=== PATIENT | male | born 1990 | race Caucasian/White ===

== ENCOUNTER 2022-01-02 14:21 | Outpatient (REF) | payer OTHER, SELFPAY ==
[2022-01-02 16:51] LABS: CT PCR NOT DETECTED (Not Detect.); NG PCR NOT DETECTED (Not Detect.)
== END 2022-01-02 14:22 | disposition home or self-care (01) ==
LOC: HO.LNP 14:21
PROVIDERS: Visit Provider Internal Medicine
DX: Z11.3 Encounter for screening for infections with a predominantly sexual mode of transmission (principal)
CPT/HCPCS: 87491; 87591

== ENCOUNTER 2023-09-22 09:35 | Outpatient (AMB) | payer OTHER, SELFPAY ==
--- NOTE | 2023-09-22 09:42 | MHC.OFFWIV ---
Intake Vital Signs 09/22/23 09:47 Weight 253 lb 6 oz BP 112/72 Blood Pressure Location Rt brachial Position Sitting Pulse 82 Pulse Source Pulse Oximeter Temp 97.9 F Temp Source Temporal Artery Scan Intake Visit Reasons: EP, Work Form Intake Note: pt is here for work form to be filled out Patient Tobacco Use Status: Never used Tobacco Allergies No Known Allergies [No Known Allergies*] Allergy (Verified 09/22/23 09:43) Do you need a note to return to daycare/school/sports/work: Yes HPI HPI Comments History of Present Illness Details 32-year-old otherwise healthy male that presents for physical form. Patient is trying over state please needs a form stating he is able to run a mi half. Patient exercises regularly has no medical history no history of heart disease in the family. PFSH Social History Patient Tobacco Use Status: Never used Tobacco Review of Systems Const All systems reviewed & are unremarkable except as noted in HPI and below Denies fever(s), Denies headache(s) and Denies weakness Eyes Reports no additional complaints ENT Reports no additional complaints and Denies headache(s) Card Reports no additional complaints, Denies chest pain, Denies leg edema and Denies dyspnea Resp Denies cough and Denies dyspnea GI Denies abdominal pain, Denies nausea and Denies vomiting Denies dysuria and Denies urinary frequency Musc Reports no additional complaints Neuro Denies headache(s) and Denies weakness Psych Reports no additional complaints Endo Reports no additional complaints Physical Exam Vital Signs: Last Vital Signs Temp 97.9 F 09/22/23 09:47 Pulse 82 09/22/23 09:47 BP 112/72 09/22/23 09:47 Const General: cooperative, no acute distress and alert Orientation/consciousness: patient oriented x3 Limitations: no limitations HEENT Head: Yes normal to inspection Ears: hearing grossly normal bilaterally and external ears normal General nose exam: Normal external nose present Eyes General: appearance normal, both eyes and all related structures Neck Neck: Yes normal visual inspection Chest Chest palpation & inspection: normal inspection of the chest Resp Effort & Inspection: normal respiratory effort, able to speak in complete sentences and no audible wheezes Auscultation: clear to auscultation bilaterally Cardio Rate: regular rate Rhythm: regular rhythm GI Inspection: Yes normal to inspection Palpation (GI): Soft to palpation and nontender Skin General skin exam: no rashes or lesions noted Neuro General: patient oriented x3 Psych Appearance: grossly normal Mental Status: mental status grossly normal Speech and movement: Normal speech and movement present Affect: normal affect Attitude: cooperative Thought process: Normal thought process present Thought content: Normal thought content present Assessment & Plan Assessment & Plan (1) General medical exam: Code(s): Z00.00 - Encounter for general adult medical examination without abnormal findings Plan: VSS. Exam was unremarkable no murmurs rubs or gallops patient appears in good health and capable of participating in physical activity. Discharge instructions, follow up and treatment are discussed with patient in my usual fashion. Alternatives in treatment are also discussed. The patient will return for worsening symptoms or as needed. Advised that any labs/imaging ordered will be followed up on and contact made if further treatment needed. Counseled that patient's condition may require further evaluation and/or treatment. Symptoms of concern for worsening disorder discussed in detail in my customary manner. Patient does verbalize understanding of the plan, there are no apparent barriers to communication. The patient is given the opportunity to ask questions and have them answered to his/her satisfaction Coding Level of Care Code Est Pt Level 3 (71852) Diagnoses General medical exam Z00.00
[2023-09-22 09:47] VITALS: BP 112/72; PULSE 82; TEMP 36.6
== END 2023-09-22 10:06 | disposition home or self-care (01) ==
PROVIDERS: PCP Physician Assistant; Visit Provider Physician Assistant
DX: Z02.1 Encounter for pre-employment examination (principal)
CPT/HCPCS: 99080

== ENCOUNTER 2023-10-27 15:27 | Outpatient (AMB) | payer OTHER, SELFPAY ==
--- NOTE | 2023-10-27 15:52 | AM.OFFWIN_ITS ---
Intake Vital Signs 10/27/23 15:58 Height 6 ft Weight 118.841 kg BMI 35.5 BP 110/68 Blood Pressure Location Rt brachial Position Sitting Pulse 91 Pulse Source Pulse Oximeter Temp 99.1 F Temp Source Temporal Artery Scan Pulse Oximetry (%) 98 Oxygen Delivery Method Room Air Intake Visit Reasons: EP chest tight bodyaches headache vomiting [id number] Intake Note: pt is here today for chest tight bodyaches,headache,vomiting started last night Patient Tobacco Use Status: Never used Tobacco Allergies No Known Allergies [No Known Allergies*] Allergy (Verified 10/27/23 15:54) Do you need a note to return to daycare/school/sports/work: Yes HPI HPI Comments History of Present Illness Details 1625 32-year-old male without significant med ical history presents to the clinic for sick visit complaining of nausea, vomiting, diarrhea, fatigue, malaise, myalgias, some difficulty breathing/chest tightness when breathing, ongoing for the past 2 days. [place] He had drill we can this past weekend. Patient denies chest pain, shortness of breath, abdominal pain, fevers, chills, headache, vision changes, dizziness and weakness. No significant personal or family cardiac history Physical examination benign. Likely viral illness flu versus COVID versus RSV. Unlikely ACS, pulmonary embolism, pneumonia, acute respiratory distress, pneumothorax. No signs of acute abdomen, appendicitis, diverticulitis, pancreatitis or cholecystitis Plan at this time viral testing. Will give Zofran for nausea vomiting and an inhaler for shortness of breath. Educated patient on diagnosis and treatment plan, answered all question, patient verbalizes understanding. At this time patient will be discharged home, advised to return with new or worsening symptoms. Educated on worrisome signs and symptoms and when to return. At this time I feel comfortable discharge home. [facility] Social History Patient Tobacco Use Status: Never used Tobacco Review of Systems Const Details: Constitutional : No Weight loss, No Fever, No Chills, + Fatigue, + Malaise ENT/Mouth : No sore throat, No Rhinorrhea Eyes: No Eye Pain, No Swelling, No Redness Cardiovascular : No Chest Pain, No SOB, No Dyspnea on Exertion, No Orthopnea, No Edema, No Palpitations Respiratory : No Cough, No Sputum, No Wheezing Gastrointestinal : + Nausea, + Vomiting, + Diarrhea, No Constipation, No abdominal Pain, No Hematochezia, No Melena Genitourinary : No Dysuria, No Urinary Frequency, No Hematuria, Musculoskeletal : No joint pain, + Myalgias, No Joint Swelling Skin : No Skin Lesions, No rash Neuro : No Weakness, No Numbness, No Dizziness, No Headache Psych : No Anxiety/Panic, No Depression All other systems reviewed and are negative All systems reviewed & are unremarkable except as noted in HPI and below Physical Exam Vital Signs: Last Vital Signs Temp 99.1 F 10/27/23 15:58 Pulse 91 10/27/23 15:58 BP 110/68 10/27/23 15:58 Pulse Ox 98 10/27/23 15:58 Oxygen Delivery Method Room Air 10/27/23 15:58 BMI result Body Mass Index 35.5 vss Appearance: Alert.? Oriented X3.? No acute distress.? Head: Normocephalic, atraumatic, no step-offs or deformities Eyes: Pupils equal, round and reactive to light.? ENT: Pharynx normal.? Neck: Normal inspection.? Neck supple.? CVS: Normal heart rate and rhythm.? Pulses normal.? Respiratory: No respiratory distress.? Breath sounds normal.? Abdomen: Soft and nontender.? Skin: Skin warm and dry.? Normal skin color.? Normal skin turgor.? Extremities: No lower extremity edema.? No calf ttp. 5/5 strength to bilateral upper and lower extremities Neuro: Oriented X 3.? No motor deficit.? No sensory deficit. CN 2-12 intact Assessment & Plan Assessment & Plan (1) Viral illness: Code(s): B34.9 - Viral infection, unspecified Plan Take your medications as prescribed. If you were prescribed antibiotics today, it is important that you take your medication to their entirety, do not skip any doses, do not finish them early. Follow-up with your primary care provider this week. Return to the emergency department with new or worsening symptoms. Such as fevers, chills, chest pain, shortness of breath, nausea, vomiting, dizziness, headache, vision changes, lethargy In case of emergency call 911 Orders: Orders SARS-CoV2/FLU/RSV Today B34.9 - Viral infection, unspecified Medications: New albuterol sulfate 90 mcg/actuation 2 puffs inhalation Q6H PRN 6.7 grams 0RF shortness of breath or wheezing ondansetron 4 mg PO Q8-12H PRN 14 tabs 0RF nausea and vomiting Coding Level of Care Code Est Pt Level 3 (74064) Diagnoses Viral illness B34.9
[2023-10-27 15:58] VITALS: BP 110/68; PULSE 91; TEMP 37.3; O2SAT 98; BMI 35.5
== END 2023-10-27 16:55 | disposition home or self-care (01) ==
PROVIDERS: PCP Physician Assistant; Visit Provider Physician Assistant
DX: B34.9 Viral infection, unspecified (principal)
CPT/HCPCS: 99213

== ENCOUNTER 2023-10-27 15:30 | Outpatient (REF) | payer OTHER, SELFPAY ==
[2023-10-28 13:17] LABS: Influenza A PCR NEGATIVE (Negative); Influenza B PCR NEGATIVE (Negative); Resp Syncy Virus RNA Qual PCR NEGATIVE (Negative); SARS COV2 PCR INHOUSE NEGATIVE (Negative)
== END 2023-10-27 15:31 | disposition home or self-care (01) ==
LOC: HO.HMGCLNP 15:30
PROVIDERS: Visit Provider Physician Assistant
DX: Z11.52 Encounter for screening for COVID-19 (principal); Z20.822 Contact with and (suspected) exposure to COVID-19; B34.9 Viral infection, unspecified
CPT/HCPCS: 0241U

== ENCOUNTER 2025-02-19 11:17 | Outpatient (AMB) | payer OTHER, SELFPAY ==
--- NOTE | 2025-02-19 11:20 | MHC.PC.OV ---
Vital Signs 02/19/25 11:21 Height 6 ft Weight 266 lb 4 oz BMI 36.1 BP 120/78 Blood Pressure Location Lt brachial Position Sitting Pulse 84 Pulse Source Pulse Oximeter Temp 97.1 F Temp Source Temporal Artery Scan Pulse Oximetry (%) 97 Oxygen Delivery Method Room Air Intake Visit Reasons: [facility]03/20 & rt 03/27 Intake Note: Patient is here for a Pre-op for Cataract eye surgery scheduled with Dr. Patrick/Sam on 03/20 for the left eye & 03/27 for the right eye. 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 Accompanied by: Self / Same As Patient Allergies No Known Allergies [No Known Allergies*] Allergy (Verified 02/19/25 11:31) Medication List - Last Reconciled 02/19/25 by Marko Balbuena PA-C albuterol sulfate 90 mcg/actuation 2 puffs inhalation Q6H PRN Tobacco use date assessed: 02/19/25 Dental Screening Dental Screen Date: 02/19/25 Did you have a dental visit in the last 12 months?: Yes Did you have a dental problem in the last 6 months where you did not have access to dental care?: No Was dental information given to patient?: Patient has dentist HPI [facility]03/20 & rt 03/27 HPI Details Patient is a 34-year-old male here today for a preop visit. Patient has a past medical history of obesity and asthma. Patient is due for eye surgery at the [facility] on March 20 and March 27 for cataract removal. .. Concerns--> he does report bilateral lateral knee pain that has been having over last few months also lower back pain that has been evident over last few years. [place] does [place] and reporting lower back pain. He is interested in getting a lower back x-ray to evaluate. He also mentions he has had a few episodes of acute vertigo to which he was given meclizine for a urgent care. He is not sure there is a particular cause of the vertigo. He is open to the idea of trying Jo-Ann maneuvers for his vertigo. [facility] Social History Housing: House Patient Tobacco Use Status: Never used Tobacco e-Cigarette/Vaping Use: Never Used service: No Current occupational status: employed Cognitive needs: No Hearing needs: No Vision needs: No Questionnaire PHQ-9 Over the last 2 weeks, how often have you been bothered by any of the following problems? 1. Little interest or pleasure in doing things: not at all 2. Feeling down, depressed, or hopeless: not at all 3. Trouble falling or staying asleep, or sleeping too much: not at all 4. Feeling tired or having little energy: not at all 5. Poor appetite or overeating: not at all 6. Feeling bad about yourself - or that you are a failure or have let yourself or your family down: not at all 7. Trouble concentrating on things, such as reading the newspaper or watching television: not at all 8. Moving or speaking so slowly that other people could have noticed. Or the opposite - being so fidgety or restless that you have been moving around a lot more than usual: not at all 9. Thoughts that you would be better off or of hurting yourself in some way: not at all Total score: 0 Depression Screening Interpretation: Negative Depression Screening Done: Yes 50108 - PHQ-9 Billing: Yes Source: Developed by Drs. Brandin Snow, Claudia Quiroz, Gerardo Mcdonald and colleagues, with an educational maxime from [employer]. Thrive Questionnaire Date Thrive assessed: 02/19/25 I am a: Patient What is your living situation today?: I have a steady place to live Within the past 12 months, did the food you bought not last and you didn't have the money to get more?: Never true Within the past 12 months, did you worry whether your food would run out before you got money to buy more?: Never true Do you have trouble paying for medicines?: No Do you have trouble getting transportation to medical appointments?: No Do you have trouble paying your heating and electricity bill?: No Do you have trouble taking care of your child, family member or friend?: No Do you have trouble with day-to-day activities such as bathing, preparing meals, shopping, managing finances, etc.?: No Are you currently unemployed and looking for a job?: No Are you interested in more education?: No Please select the resources that you would like help with: None Currently or been in a relationship where the following occur: No concerns reported THRIVE Score: 0 AUDIT C Alcohol Use Questionnaire (AUDIT-C) 1. How often do you have a drink containing alcohol?: Never 3. How often do you have six or more drinks on one occasion?: Never Total Score: 0 TAWANNA-7 AMB Questionnaire TAWANNA-7 Date TAWANNA - 7 assessed: 02/19/25 Feeling nervous, anxious, or on edge: 0 = Not at all Not being able to stop or control worryin = Not at all Worrying too much about different things: 0 = Not at all Trouble relaxin = Not at all Being so restless that it is hard to sit still: 0 = Not at all Becoming easily annoyed or irritable: 0 = Not at all Feeling afraid as if something awful might happen: 0 = Not at all Total TAWANNA-7 score (0-4 normal; 5-9 mild; 10-14 moderate; 15-21 severe): 0 Source: Developed by Drs. Brandin Snow, Claudia Quiroz, Gerardo Mcdonald and colleagues, with an educational maxime from [employer]. TAWANNA-7 Assessment Billing TAWANNA-7 Assessment Tool: TAWANNA-7 Assessment 28567 Review of Systems Const Denies headache(s) Eyes Denies loss of vision ENT Denies vertigo, Denies dizziness, Denies headache(s) and Denies sore throat Card Denies chest pain, Denies leg edema and Denies lightheadedness Resp Denies cough, Denies hemoptysis and Denies wheezing GI Denies abdominal pain, Denies melena, Denies constipation, Denies diarrhea and Denies vomiting Denies dysuria, Denies urinary frequency and Denies urinary urgency Musc Denies arthralgias, Denies joint swelling, Denies numbness and Denies tingling Neuro Denies Abnormal speech present, Denies behavioral changes, Denies vertigo, Denies dizziness, Denies headache(s), Denies loss of vision, Denies memory loss, Denies numbness and Denies tingling Psych Denies anxiety, Denies behavioral changes, Denies depression, Denies memory loss and Denies panic attacks Calixto/Lymph Denies easy bleeding and Denies easy bruising Aller/Immun Denies wheezing Physical exam (Primary Care) Vital Signs: Last Vital Signs Temp 97.1 F 02/19/25 11:21 Pulse 84 02/19/25 11:21 BP 120/78 02/19/25 11:21 Pulse Ox 97 02/19/25 11:21 Oxygen Delivery Method Room Air 02/19/25 11:21 BMI result Body Mass Index 36.1 Tobacco/Smoking Status: Tobacco use Status Tobacco use date assessed 02/19/25 02/19/25 11:23 Patient Tobacco Use Status Never used Tobacco 02/19/25 11:20 e-Cigarette/Vaping Use Never Used 02/19/25 11:23 PHQ-9: PHQ-9 Score PHQ-9: Total score 0 02/19/25 11:32 Depression Screening Interpretation: Negative Thrive Assessment: Date of Thrive Assessment Date Thrive assessed 02/19/25 02/19/25 11:23 Currently or been in a relationship where the following occur: No concerns reported Const General: healthy appearing, no acute distress, alert and awake Nutritional Appearance: well nourished Orientation/consciousness: oriented to person, oriented to place and oriented to time HENMT Ears: TM's normal bilaterally General nose exam: Normal nasal mucous membranes and turbinates present Eyes Conjunctivae: conjunctivae normal Sclerae: sclerae normal Pupils: Equal, round and reactive pupils present Neck Neck: Yes no lymphadenopathy and Yes no JVD Thyroid: Thyroid normal Carotids: no bruits Resp Effort & Inspection: normal respiratory effort and not tachypneic Auscultation: no crackles, no rales, no rhonchi and no wheezes Cardio Rate: regular rate Rhythm: regular rhythm Heart sounds: no murmurs and normal S1 and S2 GI Palpation (GI): Soft to palpation, nontender, no hepatomegaly and no splenomegaly Auscultation: normal bowel sounds Skin General skin exam: no rashes or lesions noted and dry skin Neuro General: oriented to person, oriented to place and oriented to time Cranial nerves: Yes Equal, round and reactive pupils present Speech: No Abnormal speech present Gait exam (Neuro): Normal gait present Motor exam (neuro): no tremor noted Extrem Right upper extremity: full ROM Left upper extremity: full ROM Right lower extremity: full ROM; no edema Left lower extremity: full ROM; no edema Psych Mental Status: mental status grossly normal Speech and movement: Normal speech and movement present Affect: normal affect Attitude: cooperative Thought process: Normal thought process present Coding Level of Care Code Est Pt Level 4 (01315) Diagnoses Pre-op evaluation Z01.818 Screening for diabetes mellitus (DM) Z13.1 Class 2 obesity E66.812 Benign paroxysmal positional vertigo, unspecified laterality H81.10 Laterality: unspecified laterality Chronic pain of both knees M25.561; M25.562; G89.29 Chronicity: chronic Lumbar spine pain M54.50 Additional Codes TAWANNA-7 Assessment Billing - TAWANNA-7 Assessment Tool: TAWANNA-7 Assessment 25294 ([id number]) PHQ-9 - 22568 - PHQ-9 Billing: Yes ([id number]) Assessment & Plan Assessment & Plan (1) Pre-op evaluation: Code(s): Z01.818 - Encounter for other preprocedural examination Category: Medical Plan: Patient's vitals normal today. He is medically clear for needed bilateral cataract removals. (2) Screening for diabetes mellitus (DM): Code(s): Z13.1 - Encounter for screening for diabetes mellitus Category: Medical Plan: As per HPI (3) Class 2 obesity: Code(s): E66.812 - Obesity, class 2 Category: Medical Plan: Patient does understand his BMI is over 35 and will work on being more physically active and adapting to better eating habits to reduce his weight (4) BPPV (benign paroxysmal positional vertigo): Code(s): H81.10 - Benign paroxysmal vertigo, unspecified ear Category: Medical Qualifiers: Laterality: unspecified laterality Qualified Code(s): H81.10 - Benign paroxysmal vertigo, unspecified ear Plan: Patient's signs symptoms most consistent with a benign paroxysmal positional vertigo. Advised on Jo-Ann maneuvers. We did discuss the possibility of trying formal vestibular therapy for his vertigo. (5) Bilateral knee pain: Code(s): M25.561 - Pain in right knee; M25.562 - Pain in left knee Category: Medical Qualifiers: Chronicity: chronic Qualified Code(s): M25.561 - Pain in right knee; M25.562 - Pain in left knee; G89.29 - Other chronic pain Plan: Patient's knee pain most consistent with a tendinitis of the lateral aspect of both knees. He will continue doing conservative management in trying to lose weight. (6) Lumbar spine pain: Code(s): M54.50 - Low back pain, unspecified Category: Medical Plan: As per HPI patient continues to have lumbar spine. He is willing to get x-ray of the lumbar spine to evaluate. We did discuss the possibility of starting physical therapy. Orders: Orders Comprehensive [place]. Panel Fast Today Z13.1 - Encounter for screening for diabetes mellitus Complete Blood Count no Diff Today Z13.1 - Encounter for screening for diabetes mellitus XR lumbar spine 2-3V Today M54.50 - Low back pain, unspecified
[2025-02-19 11:21] VITALS: BP 120/78; PULSE 84; TEMP 36.2; O2SAT 97; BMI 36.1
--- OUTSIDE RECORDS SUMMARY | 2025-02-19 12:56 | XMS_ITS | Continuity of Care Document ---
Author Name [facility] Organization [facility] Care Team Providers Care Parcel Post Weigher Name Role Phone [facility] Unavailable Unavailable Problems Combined list of problems from Department of Defense and Veterans Affairs facilities. It does not include entries that were removed or entered in error. Problem Status Onset Date Problem Type Date of Resolution Comments Source Vision disorder Active 10/18/2024 Diagnosis 031 0C-AF-C-[facility] Vertigo Active 10/18/2024 Diagnosis 0310C-AF-C- [facility] Right shoulder pain Active 10/18/2024 Diagnosis 1764H-AZ-D-[facility] Pain of bilateral knee joints Active 10/18/2024 Diagnosis 5595O-YP-E-[facility] Medications Combined list of outpatient medications from Department of Defense and Veterans Affairs facilities.Medications provided include 1) outpatient medications from the last 15 months, and 2) patient-reported medications. Medication Details Route Status Patient Instructions Prescription Expires Prescription Number Last Dispense Date Ordering Provider Order Date Order Qty Source No Known Medications No Known Medicati ons complet ed [id number] AMDS Immunizations Combined list of available immunizations from the Department of Defense and Veterans Affairs facilities. Immunization Series Date Given Administered By Site Reaction Lot Number CVX Code Drug Account Executive Sales Representative Status Comments Source influenza, injectable, quadrivalent- pf 2021 [id number] GlaxoSmithKli ne complet ed influenza , injectabl e, quadrival ent-pf 09/06/22 Given Ambulat ory Pharmac y influenza, seasonal, injectable 2020 [id number] 141 Seqirus complet ed influenza , seasonal, injectabl e 08/11/21 Given Ambulat ory Pharmac y COVID Vaccine Moderna 2020 [id number] complet ed COVID Vaccine Moderna 04/27/21 Given Ambulat ory Pharmac y COVID Vaccine Moderna 2020 [id number] 207 complet ed COVID Vaccine Moderna 3/26/21 Given Ambulat ory Pharmac y anthrax vaccine 2019 [id number] 24 Emergent Biosolutions complet ed anthrax vaccine 11/08/20 Given Ambulat ory Pharmac y influenza, injectable, quadrivalent 2019 [id number] 158 Seqirus complet ed influenza , injectabl e, quadrival ent 09/30/20 Given Ambulat ory Pharmac y anthrax vaccine 2019 [id number] 24 Emergent Biosolutions complet ed anthrax vaccine 06/05/20 Given Ambulat ory Pharmac y typhoid Vi capsular polysaccharid e vac 2019 [id number] 101 sanofi pasteur complet ed typhoid Vi capsular polysacch aride vac 04/12/20 Given Ambulat ory Pharmac y anthrax vaccine 2019 [id number] 24 Emergent Biosolutions complet ed anthrax vaccine 04/12/20 Given Ambulat ory Pharmac y influenza, injectable, quadrivalent- pf 2018 [id number] 150 Seqirus complet ed influenza , injectabl e, quadrival ent-pf 10/28/19 Given Ambulat ory Pharmac y influenza, injectable, quadrivalent- pf 2017 [id number] Seqirus complet ed influenza , injectabl e, quadrival ent-pf 09/25/18 Given Ambulat ory Pharmac y Influenza, inj, MDCK, quadrivalent- pf 2016 [id number] 171 Seqirus complet ed Influenza , inj, MDCK, quadrival ent-pf 10/24/17 Given Ambulat ory Pharmac y influenza, seasonal, injectable-pf 2015 [id number] 140 Seqirus complet ed influenza , seasonal, injectabl e-pf 09/05/16 Given Ambulat ory Pharmac y hepatitis A-hepatitis B vaccine 2015 [id number] 104 GlaxoSmithKli ne complet ed hepatitis A-hepatit is B vaccine 12/28/15 Given Ambulat ory Pharmac y hepatitis A-hepatitis B vaccine 2015 [id number] 104 GlaxoSmithKli ne complet ed hepatitis A-hepatit is B vaccine 12/28/15 Given Ambulat ory Pharmac y influenza, seasonal, injectable-pf 2014 [id number] 140 CSL Behring complet ed influenza , seasonal, injectabl e-pf 08/25/15 Given Ambulat ory Pharmac y hepatitis A-hepatitis B vaccine 2014 [id number] 104 GlaxoSmithKli ne complet ed hepatitis A-hepatit is B vaccine 04/01/15 Given Ambulat ory Pharmac y hepatitis A-hepatitis B vaccine 2014 [id number] 104 GlaxoSmithKli ne complet ed hepatitis A-hepatit is B vaccine 04/01/15 Given Ambulat ory Pharmac y hepatitis A-hepatitis B vaccine 2014 [id number] 104 GlaxoSmithKli ne complet ed hepatitis A-hepatit is B vaccine 02/21/15 Given Ambulat ory Pharmac y tetanus, diphtheria, acellular pertu is 2014 [id number] 115 GlaxoSmithKli ne complet ed tetanus, diphtheri a, acellular pertussis 02/15/15 Given Ambulat ory Pharmac y tuberculin purified protein derivative 2014 [id number] 96 sanofi pasteur complet ed tuberculi n purified protein derivativ e 02/15/15 Given Ambulat ory Pharmac y adenovirus vaccine, live 2014 [id number] 143 Teva Pharmaceutica ls complet ed adenoviru s vaccine, live 02/15/15 Given Ambulat ory Pharmac y poliovirus vaccine, inactivated 2014 [id number] 10 sanofi pasteur complet ed polioviru s vaccine, inactivat ed 02/15/15 Given Ambulat ory Pharmac y meningococcal A,C,Y,W-135 (MCV4P) 2014 [id number] 114 sanofi pasteur complet ed meningoco ccal A,C,Y,W-1 35 (MCV4P) 02/15/15 Given Ambulat ory Pharmac y Results Combined list of recent chemistry, hematology and other laboratory results from Department of Defense and Veterans Affairs, ranging from 15 months to all on record, depending upon the facility. Order Name Results Value Reference Range Date Interpretation Specimen Comments Source Infectiou s Disease HIV-1/O/2 Non-Reac tive 1 ( 4 8:55 AM) 09/06 N Interpretiv e Data: INTERPRETAT ION: This method is a screening procedure for the detection of HIV p24 Antigen and Antibodies to HIV-1, including Group O, and/or HIV-2. NON-REACTIV E: HIV-1 antigen and HIV-1 / HIV-2 antibodies were not detected. No laboratory evidence of HIV infection. A negative test result does not exclude the possibility of exposure to or infection with HIV. HIV antibodies and/or p24 antigen may be undetectabl e in some stages of the infection and in some clinical conditions. If acute HIV infection is suspected, consider submitting another specimen to a reference laboratory for HIV-1 RNA. SCREEN REACTIVE - CONFIRMATIO N TO FOLLOW: Possible presence of HIV-1antibo dies, HIV-2 antibodies and/or HIV-1 p24 antigen. Specimen will reflex to the confirmatio n testing that fulfills the Center for Disease Control and Prevention' s HIV diagnostic algorithm. Refer to [employer] Lab Guide for additional information : https://Venda/ kj/kx5/EPIL ab/Pages/la b_guide.asp x Testing performed by [facility] [place]. 5600A-U [employer] EPILAB Miscellan eous Sendouts Repository Sample Received ( 4 8:55 AM) 09/06 N 5600A-U [employer] EPILAB Infectiou s Disease HIV-1/O/2 Non-Reac tive 2 (12/01/23 1:28 PM) 12/01 N Interpretiv e Data: INTERPRETAT ION: This method is a screening procedure for the detection of HIV p24 Antigen and Antibodies to HIV-1, including Group O, and/or HIV-2. NON-REACTIV E: HIV-1 antigen and HIV-1 / HIV-2 antibodies were not detected. No laboratory evidence of HIV infection. A negative test result does not exclude the possibility of exposure to or infection with HIV. HIV antibodies and/or p24 antigen may be undetectabl e in some stages of the infection and in some clinical conditions. If acute HIV infection is suspected, consider submitting another specimen to a reference laboratory for HIV-1 RNA. SCREEN REACTIVE - CONFIRMATIO N TO FOLLOW: Possible presence of HIV-1antibo dies, HIV-2 antibodies and/or HIV-1 p24 antigen. Specimen will reflex to the confirmatio n testing that fulfills the Center for Disease Control and Prevention' s HIV diagnostic algorithm. Refer to [facility] Lab Guide for additional information : https://Venda/ kj/kx5/EPIL ab/Pages/la b_guide.asp x Testing performed by [employer] [employer]. 5600A-U [facility] EPILAB Miscellan eous Sendouts Repository Sample Received (12/01/23 1:28 PM) 12/01 N 5600A-U [facility] EPILAB Infectiou s Disease HIV-1/O/2 Non-Reac tive 3 (06/10/23 1:22 PM) 06/10 N Interpretiv e Data: INTERPRETAT ION: This method is a screening procedure for the detection of HIV p24 Antigen and Antibodies to HIV-1, including Group O, and/or HIV-2. NON-REACTIV E: HIV-1 antigen and HIV-1 / HIV-2 antibodies were not detected. No laboratory evidence of HIV infection. A negative test result does not exclude the possibility of exposure to or infection with HIV. HIV antibodies and/or p24 antigen may be undetectabl e in some stages of the infection and in some clinical conditions. If acute HIV infection is suspected, consider submitting another specimen to a reference laboratory for HIV-1 RNA. SCREEN REACTIVE - CONFIRMATIO N TO FOLLOW: Possible presence of HIV-1antibo dies, HIV-2 antibodies and/or HIV-1 p24 antigen. Specimen will reflex to the confirmatio n testing that fulfills the Center for Disease Control and Prevention' s HIV diagnostic algorithm. Refer to [facility] Lab Guide for additional information : https://In[employer]. [facility]/ kj/kx5/EPIL ab/Pages/la b_guide.asp x Testing performed by [employer]. 5600A-U [facility] EPILAB [employer]cellan eous Sendouts Repository Sample Received (06/10/23 1:22 PM) 06/10 N 5600A-U [facility] [employer] Vital Signs Combined list of inpatient and outpatient Vital Signs from Department of Defense and Veterans Affairs, ranging from 12 months to all on record, depending upon the facility. Vital Sign Value Date Comments Source Respiratory Rate 16 br/min 10/18/2024 18:14:00 4388V-CK-A[facility] Peripheral Pulse Rate 62 bpm 10/18/2024 18:14:00 9883J-YG-H-[facility] Blood Pressure Manual Automatic 10/18/2024 18:14:00 6508J-SS-K-[facility] Mean Arterial Pressure, Calc 100 mm[Hg] 10/18/2024 18:14:00 0530N-HD-O-[facility] BP Site Left arm 10/18/2024 18:14:00 6465S-WG-R-[facility] Temperature Oral 36.0 Lilly 10/18/2024 18:14:00 1132Y-VW-F-[facility] Systolic Blood Pressure 130 mm[Hg] 10/18/20 24 18:14:00 1399O-EQ-C-[facility] Diastolic Blood Pressure 85 mm[Hg] 024 18:14:00 9758O-QZ-Q-[facility] Encounters Combined list of: 1) Encounters from Department of [facility] facilities going backup to the last 18 months, not all [place] inpatient encounters are included; 2) Encounters from the Department of [facility] facilities going backup to 280 months. Location Location Details Encounter Type Encounter Number Reason For Visit Attending Provider ADM Date DC Date Status Disposition Source [id number] AMDS Outpatient [id number] CHRISTIAN FAUSTSocrates 09/13 Discharge Disposition: Home or Self Care 8344R-4 [id number] AMDS 0310C-AF- C[facility] Care Not Rendered [id number] DEVIN CHURCHLEROY 10/05 Discharge Disposition: Home or Self Care 0310C-A F-C-[facility] 0310C-AF- C-[facility] Clinic [id number] Dizzine ss and giddine ss,Pain in right shoulde r,Pain in unspeci fied knee,Un specifi ed visual disturb ance DEVIN ROMELIA 10/18 Discharge Disposition: Home or Self Care 0310C-A F-C-[facility] Procedures Combined list of: 1) Procedures from Department of Veterans Affairs facilities going back up to thelast 18 months, not all [place] non-surgical procedures are included; 2) All procedures from the Department of Defense facilities. Procedure Procedure Type Code Date Perfomer Comments Sourc e No data available for this section Ambulatory P harmacy Social History Combined list of available smoking, tobacco, and other social history from Department of Defense and Veterans Affairs facilities. Social History Type Response Date Comment Rosie auguste Sex Representation Male (finding) 12/03/2022 Un known Organization Tobacco Cigarette use: Never-cigarette user. Other Tobacco use: Never-other tobacco user (not cigarettes). Ambulatory Pharmacy Sexual Orientation Ambula tory Pharmacy Gender identity Ambulator y Pharmacy Assessment and Plan Combined list of future care activities from Department of Defense and Veterans Affairs facilities (e.g., assessment and plan notes, appointments, orders, and referrals). Additional future care activities may be listed in the Plan of Care section. Result Assessment and Plan Date Source Assessment and Plan Extracted from:Title : Office Clinic Note - Vertigo, R Shoulder, B/L Knee Author: DEVIN BURGESS MD Date: 10/18/24 1.?Vertigo ?Patient with a history of vertigo episodically now x2 episodes lasting about 1-2 weeks per episode with reproducible symptoms during Frandy-Hallpike maneuver in clinic. Patient otherwise asympomatic at?this time. Jo-Ann maneuver not performed due to absence of symptoms at this time. DDx?also includes vestibular neuritis, labyrinthitis. No coexisting hearing changes or problems. No other neurologic signs or symptoms.? - Discussed repositioning maneuver which patient will review and perform if episode returns - Return precautions discussed? - Repeat meclizine if helpful and if repeats? 2.?Vision disorder Patient instructed by optometry that he has symptoms of early cataracts and was recomended?opthalmology. Not fully discussed today.? - Referral optho places? - Follow-up based on their recommendations? Ordered: Referral Request 2.0 - DoD ? 3.?Right shoulder pain ?Patient is a?33 Years?year old?Male?with a history and exam as documented suggestive of?supraspinatus injury?likely 2/2 to chronic degenerative changes associated with lifestyle (i.e. baseball, lifting weights). ? ? Plan: ? - Relative rest, ice, heat, activity modification ? - Home exercise program discussed ? ? Meds: ? - NSAIDs and Acetaminophen as needed and as ordered ? ? Imaging: ? -Radiographs:?Not indicated ? ? Referrals: ? -Physical Therapy:?ordered at this time ? ? Follow: up:?in 4-6 weeks if symptoms not improving with current plan ? Ordered: Referral Request 2.0 - DoD ? 4.?Pain of bilateral knee joints ?Patient is a?33 Years?year old?Male?with a history and exam as documented suggestive of?patellofemoral pain?syndrome . No antecedent?falls nor trauma.? ? Plan: ? - Relative rest, ice, heat, activity modification ? - Home exercise program discussed ? -?[employer] discussed and included in after visit summary ? -?Injections - not indicated ? ? Meds: ? - NSAIDs and Acetaminophen as needed and as ordered ? ? Imaging: ? -Radiographs:?Not indicated ? ? Referrals: ? -Physical Therapy:?ordered at this time ? Ordered: Referral Request 2.0 - DoD ? ? Readiness - No profiles/No DR/ No MR/ no FR ? Clinic return and ER precautions provided ? All questions answered/pt acknowledges understanding ? ? Please note that this document was dictated using cit[employer]udd[employer] Speak and I apologize for any assistant corporation counsel errors I have missed and therefore should be taken within appropriate clinical context. ? ? Patient seen and examined on day of encounter with all studies (including labs and radiology) reviewed as above. ? ? Note to patient reading this note: the Century Cares Act makes medical notes available to patient's in the interest of transparency.? Be advised this is a medical document.? It is intended primarily as xnuv-uc-wuos communication.? It is written in medical imaging which may contain abbreviations or verbiage that are unfamiliar.? It may appear as blunter or direct. This is because medical documents are intended to carry relevant information, facts is evident, and the clinical opinion of the physician only has formulated at the time of writing.? ? ? I spent 60 minutes?in direct patient care of this patient, in addition to time spent in chart review and documentation.? ? Devin Burgess Jr., MD [facility], , [facility] Family?Medicine Physician? [employer] [address], [place] [address] ? Extracted from:Title: PDMHA Author: ALFONSOKT Date: 09/07/24 POST-DEPLOYMENT MENTAL HEALTH ASSESSMENT Date: Last Name: AASHISH First Name: MIYA Peterson ID Number: [id number] Date of : Sex: Male Service Branch: [employer] Component: Reserves Pay Grade: E6 Date departed theater: Country: [place] Summary of provider's identified concerns needing referral: Recommended referal(s): Referral Time Comments: SECTION II. MENTAL HEALTH ASSESSMENT (MHA) PROVIDER INFORMATION 1. Last Name: CONCHA 2. First Name: CHRISTIAN 3. Middle Name: 4. Service Branch: [employer] 5. 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 EMAIL: [email or web address] 8. Facility: [address] [facility] 9. Unit: [address] [facility] 10. Address: [address] [place] [address] 11. State: [facility]. Zip Code: [address] 13. Phone: [phone] Date: 1. Deployer marked that they did not have a concern or a difficulty with a major life stressor. 2. Address concerns identified on deployer questions 2 and 3. History of mental health care: N/A Deployer's response: Provider's comments: Medications: N/A Deployer's response: Provider's comments: 3. Deployer's AUDIT-C screening score was 3. (nothing required) 4. Deployer did not luis yes on three or more of questions 5a through 5e. 5. Deployer did not luis More than half the days or nearly every day on question 6a or 6b. 6.a. Deployer has not wished they were or wished they could go to sleep and not wake up. 6.b. Deployer has not actually had thoughts of killing themself. 6.f.1. Deployer has not ever done anything, started to do anything, or prepared to do anything to end their life. 6.g. Further risk assessment: no concerns 6.h. Deployer does not pose a current risk for harm to self. 7. Deployer states that they have not had thoughts or concerns over the past month that they might hurt or lose control with someone. 13. Supplemental services recommended/information provided: No Supplemental Services Required 1. a. [ None ] Over the PAST MONTH, which major life stressors, if any, have you experienced that are a cause of significant concern or make it difficult for you to do your work, take care of things at home, or get along with other people? 2. [ No ] In the PAST YEAR did you receive care for any mental health condition or concern such as, but not limited to post traumatic stress disorder (PTSD), depression, anxiety disorder, alcohol abuse or substance abuse? 3. [ None ] What prescription or over-the counter medications (including herbals/supplements) for sleep, pain, combat stress, or a mental health problem are you CURRENTLY taking? 4. a. [ 2-4 times a month ] How often do you have a drink containing alcohol? 4. b. [ 1 or 2 ] How many drinks containing alcohol do you have on a typical day when you are drinking? 4. c. [ Less than monthly ] How often do you have six or more drinks on one occasion? 5. Have you ever had any experience that was so frightening, horrible, or upsetting that in the PAST MONTH, you: 5. a. [ No ] Have had nightmares about it or thought about it when you did not want to? 5. b. [ No ] Tried hard not to think about it or went out of your way to avoid situations that remind you of it? 5. c. [ No ] Were constantly on guard, watchful or easily startled? 5. d. [ No ] Milton numb or detached from others, activities, or your surroundings? 5. e. [ No ] [place] guilt or unable to stop blaming yourself or others for the event(s) or any problems the event(s) may have caused? 6. Over the LAST 2 WEEKS, how often have you been bothered by the following problems? 6. a. [ Not at all ] Little interest or pleasure in doing things 6. b. [ Not at all ] Feeling down, depressed, or hopeless 7. [ No ] Would you like to schedule an appointment with a health care provider to discuss any health concern(s)? 8. [ No ] Are you interested in receiving information or assistance for a stress, emotional or alcohol concern? 9. [ No ] Are you interested in receiving assistance for a family or relationship concern? 10. [ No ] Would you like to schedule a visit with a spool carrier or a community support counselor? Extracted from:Title: [facility] 2023 Author: KT HAMILTON Date: 09/06/24 ANNUAL PERIODIC HEALTH ASSESSMENT I. COOK HELPER FRUIT INFORMATION AND DEMOGRAPHICS (SMI) 1. Last Name: AASHISH 2. First Name: MIYA 3. Middle Name: ELAINA 4. Assessment Date: 5. : 6. Age: 33 7. Sex: M 8. DoD ID Number: [id number] 9. Service Branch: [employer] 10. 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 Unit Name: [address] 14. Duty Station/Location: [place] 15. UIC: [id number] 16. Is this your first Periodic Health Assessment (PHA)?: N 17. Are you enrolled in a secure messaging system with your health care provider?: 18. Current contact information: Preferred Method: Day Time Phone DSN: Day Time Phone: [phone] Night Time Phone: [phone] Email 1: [email or web address] Email 2: Address: [address] [place] [address] City: [place] State: [place] Zip Code: [address] 19. Point of contact who can always reach you: Name: Kierra Beatty Phone 1: [phone] Phone 2: EMAIL: [email or web address] Address: [address] [place] [address] City: [place] State: [place] Zip Code: [address] II. DEPLOYMENT INFORMATION (DEP) 1. [ 1 ] Total number of deployments in the PAST 5 YEARS 2. [ [place] ] Primary country of last deployment 3. [ ] Date departed theater 4. [ N ] Are you going to deploy within the NEXT 120 DAYS? III. 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 [ No ] Does your specialty require an operational duty physical exam? 4. [ No ] Are you currently enrolled in a medical surveillance/occupational health program?: No IV. MEDICAL CONDITIONS (MIKE): 1. Since your last PHA, have you experienced any of the following health conditions, and if so, what is your status? [ ] Conditions with no medical care [ Periods of dizziness, fainting, or loss of consciousness ] Conditions with medical care, but no longer under treatment [ ] Conditions with medical care, and NOW under treatment 2. Since your last PHA, have you experienced any of the following health conditions, and if so, what is your status? [ ] Conditions with no medical care [ Recurring muscle, joint, or low back pain ] Conditions with medical care, but no longer under treatment [ ] Conditions with medical care, and NOW under treatment 3. For any condition marked YES in question 1 or 2, are you currently on any profile or limited duty for that condition? [ ] Conditions 4. [ Not Sure ] Have you been based or stationed at a location where an open burn pit was used? 5. [ Not Sure ] Have you been exposed to toxic airborne chemicals or other airborne contaminants? 6. [ No ] Are you enrolled in the Airborne Hazards and Open Burn Pit Registry? 7. [ Yes ] Federal law requires eligible members to enroll in the Airborne Hazards and Open Burn Pit Registry or opt-out. If eligble, choose one: 8. Have you had any surgery since your last PHA?: No 10.a. [ No ] Since your last PHA, has a health care provider recommended surgery(s) that you have not had? 11.a. [ No ] Do you currently require hearing aids, special medical supplies, CPAP, adaptive equipment, assistive technology devices, and/or other special accommodations? 12.a. [ No ] Do you have a waiver or profile for any part of your Service's physical fitness test? 13.a. [ No ] Do you have any problems wearing a gas mask, ballistic helmet, body armor, and/or chemical/biological protective garments? 14.a. [ No ] Have you ever been told by a health care provider that you SHOULD NOT receive an immunization for medical reasons? 15.a. [ No ] Do you have a permanent profile or an Assignment Limitation Code C? 16.a. [ No ] Are you on a temporary profile or limited duty? 17. [ 0 ] During the PAST 2 years, how many times have you been placed on a temporary profile or on limited duty? V. INDIVIDUAL MEDICAL READINESS (IMR) 1. [ No ] Do you have any allergies? 3. [ Not required ] Do you have red medical warning dog tags? 4. [ Yes ] Do you wear corrective lenses? 5. [ 1 ] How many pairs of glasses do you have? 6. [ Yes ] Do you have gas mask inserts? . BEHAVIORAL HEALTH (MHA) 1. a. [ None ] Over the PAST MONTH, what major life stressors have you experienced that are a cause of significant concern or make it difficult for you to do your work, take care of things at home, or get along with other people (for example, serious conflicts with others, relationship problems, or a legal, disciplinary or financial problem)? 2. a. [ No ] In the PAST YEAR did you receive care for any mental health condition or concern such as, but not limited to post traumatic stress disorder (PTSD), depression, anxiety disorder, alcohol abuse or substance abuse? 3. [ None ] What prescription or over-the counter medications (including herbals/supplements) for sleep, pain, combat stress, or a mental health problem are you CURRENTLY taking? 4. a. [ Yes ] In the past 12 months, have you gambled? 4. b. [ No ] During the past 12 months, have you become restless, irritable, or anxious when trying to stop/cut down on gambling? 4. c. [ No ] During the past 12 months, have you tried to keep your family or friends from knowing how much you gambled? 4. d. [ No ] During the past 12 months, did you have such financial trouble as a result of your gambling that you had to get help with living expenses from family, friends, or welfare? 5. a. [ 2-4 times a month ] How often do you have a drink containing alcohol? 5. b. [ 1 or 2 ] How many drinks containing alcohol do you have on a typical day when you are drinking? 5. c. [ Less than monthly ] How often do you have six or more drinks on one occasion? 6. Have you ever had any experience that was so frightening, horrible, or upsetting that in the PAST MONTH, you: 6. a. [ No ] Have had nightmares about it or thought about it when you did not want to? 6. b. [ No ] Tried hard not to think about it or went out of your way to avoid situations that remind you of it? 6. c. [ No ] Were constantly on guard, watchful or easily startled? 6. d. [ No ] Milton numb or detached from others, activities, or your surroundings? 6. e. [ Not answered ] Milton guilt or unable to stop blaming yourself or others for the event(s) or any problems the event(s) may have caused? 7. Over the LAST 2 WEEKS, how often have you been bothered by the following problems? 7. a. [ Not at all ] Little interest or pleasure in doing things 7. b. [ Not at all ] Feeling down, depressed, or hopeless 8. [ Yes ] Would you like to schedule an appointment with a health care provider to discuss any health concern(s)? 9. [ No ] Are you interested in receiving information or assistance for a stress, emotional or alcohol concern? 10. [ No ] Are you interested in receiving assistance for a family or relationship concern? 11. [ No ] Would you like to schedule a visit with a spool carrier, mental health care provider, or a community support counselor? VII. FAMILY HISTORY AND LIFESTYLE (LIF) 1. [ Good ] Overall, how would you rate your health during the PAST MONTH? 2. [ None/Don't Know ] Member indicates that family members have the following problems 6. [ Yes ] I participate in moderate intensity physical activites at least 2.5 hours, or a combination of moderate and vigorous aerobic activites, for at least 75 minutes per week. 7. In a typical week, I do physical activities specifically designed to STRENGTHEN my muscles: [ 4 ] Day(s) per week 8. [ None ] What prescriptions or [id number]-boipgve medications are you CURRENTLY taking for health problems on a ROUTINE BASIS? 9. Which of the following products have you taken since your last PHA: Protein Supplements/Creatine: Every other day Performance Enhancers/Pre-Workout Products: Every other day Herbal or Botanical Supplements in pills, gels, and/or tablet form: Every other day Multi-Vitamins: Every other day Nelson-3 Supplements: Once a day 11. Think about the PAST 30 DAYS. How often did you eat/drink the following foods/beverages? [ 1 serving per day ] Fruits [ 1 serving per day ] Vegetables [ 1 serving per day ] Starchy Vegetables [ 1 serving per day ] Whole Grains [ 1 serving per day ] Dairy and Calcium Containing Foods [ Rarely or Never ] Fish [ 1 serving per day ] Lean Protein [ 1 or 2 servings per week ] Sugar-Sweetened Beverages 12. [ Don't Know ] Have you had a cholesterol check by a health animal care taker within the PAST 5 YEARS? 13.a. In the PAST 30 DAYS, which of the following products have you used on at least one day? None 15. Which of the following best describes your past tobacco use? I used tobacco in the past, but quit in 2023 16. [ No ] Are you regularly exposed to secondhand smoke? 17. [ 7 to 9 hours ] During the LAST 2 WEEKS, how many hours of sleep did you get on most days? 18. [ No ] During the LAST 2 WEEKS, have you felt impaired or unable to adequately perform due to sleepiness or poor quality sleep? 19. [ No ] Have you had any unexplained weight loss or gain since your last PHA? 20. Member is not at risk for sexually transmitted infections. 22. Since your last PHA, what, if anything, have you and your partner used to keep from getting ? [ My partner(s) or I intend to get in the next year. ] I am not actively taking steps to prevent as 23. [ No ] In the last year, have you or your partner had a scare, where you were not trying to get but were worried enough to use a home test? IX. RESERVE COMPONENT (RES) 1. [ Yes ] Do you have an injury, illness, Or disease which was incurred or aggravated while in a duty status since your last PHA? 2. [ No ] Have you completed or are you pending a Line of Duty for that injury, illness, or disease? 3. What is your injury, illness, or disease? When did it occur? back / knee issues: 4. [ Yes - ] Are you currently coverered under a health insurance policy? 5.a. [No, I have never applied for Worker's Compensation ] Do you have any current physical or mental health limitations related to a Worker's Compensation claim? 6. [ No ] Have you applied for or have you received a VA disability rating? X. OTHER MEDICAL (OTH) 1. [ 1 ] Rate the amount of pain you have had, on average, over the PAST 24 HOURS 2. [ No ] Are you receiving treatment for pain? 3. [ No ] Since your last PHA, have you received care or treatment for any medical and/or mental health condition(s) from a civilian or non- facility? 5. Member acknowledged responsibility for reporting health issues. 7. [ Yes ] Woud you like to schedule an appointment with a health care provider to discuss any health concerns? XI. SEPARATION AND LONG TERM 1. [ No ] Are you planning to separate or retire within the next year from Active Duty or [place] Duty (activated for greater than 30 continuous days) OR do you intend to file a claim for disability compensation with the Veterans Benefits Administration? PART B. RECORD REVIEW AND RECOMMENDATIONS I. RECORD REVIEWER INFORMATION 1. Last Name: MAHSA 2. First Name: DEVIN 3. Middle Name: 4. Service Branch: [employer] 5. 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 EMAIL: [email or web address] 8. Facility: [facility] 9. Unit: [facility] 10. Address: [address] [place] [address] 11. State: [facility]. Zip Code: [address] 13. Phone: [phone] 14. Date Record Review: II. MEDICAL SCREENING 1. [ ] Date of administrative appeals tribunal member's most recent PHA 2. [ 6 feet 0 inches Date: ] administrative appeals tribunal member's most recently documented height 3. [ 250 pounds Date: ] administrative appeals tribunal member's most recently documented weight 4. [ 122/78 Date: ] administrative appeals tribunal member's most recently documented blood pressure reading 5. [ No ] Does the administrative appeals tribunal member have a history of abnormal blood pressure since their last PHA? 6. [ Yes ] Does the administrative appeals tribunal member have a laboratory test of sickle cell trait documented in their permanent medical record? 7. [ No Cholesterol Test Documented ] What is the date of the administrative appeals tribunal member's most recently documented cholesterol test? 9. [ No Active Medications Documented ] List of administrative appeals tribunal member's active medications listed in their permanent medical record 10. [ No ] Is there a discrepancy between the active medication record review and the administrative appeals tribunal member's self-reported list of medications? 11. [ No Outside Care Documented ] List documented significant care the administrative appeals tribunal member has received since their last PHA from a provider OUTSIDE the Health System 12. [ No ] Is there a discrepancy between the administrative appeals tribunal member's list of OUTSIDE care (from OT5), and the OUTSIDE care found in the record? 13. [ [id number] LBP [id number] LBP chronic [id number] dizziness/shaving wavier ] List documented significant care the administrative appeals tribunal member has received since their last PHA from a provider INSIDE the Health System 15. [ Not Answered ] Confirm that vaccine exemptions are listed in the medical record for each vaccine listed IV. FAMILY HISTORY AND LIFESTYLE 1. [ Yes ] Does the [id number] reflect the administrative appeals tribunal member's reported family history? . DEPLOYMENT-RELATED HEALTH ASSESSMENTS 1. [ No ] Based on your check of records, does the administrative appeals tribunal member have any due or overdue deployment health assessments which need to be completed with this PHA? VII. INDIVIDUAL MEDICAL READINESS 1. [ No ] Does the administrative appeals tribunal member have an Assignment Limitation Code C? 3. [ Classification: 2 ] Most recently documented dental exam 4. [ No: Influenza, [place] ] Is the administrative appeals tribunal member current on all required immunizations in the immunization tracking system? 5. [ Yes ] Is the administrative appeals tribunal member current with Service-specific requirements for glasses and gas mask inserts? 6. Does the administrative appeals tribunal member have the following laboratory tests documented in their permanent medical record? [ Yes ] HIV test within the PAST 24 months [ Yes ] G6PD results on file [ Yes ] Blood type and Rh on file [ Yes ] DNA test on file IX. ADDITIONAL RECORD REVIEWER COMMENTS 1. This record review indicates the potential need for provider notification or referral: Provider Notified 2. Additional comments about this record review that need to be forwarded to the Health Secure Software Assessor completing PART C: see [facility] Date Record Review Completed: PART C. HEALTH CARE PROVIDER I. MENTAL HEALTH ASSESSMENT (MHA) PROVIDER INFORMATION 1. Last Name: CONCHA 2. First Name: CHRISTIAN 3. Middle Name: 4. Service Branch: [employer] 5. 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 EMAIL: [email or web address] 8. Facility: [address] [place], [place] [address] 9. Unit: [address] [place], [place] [address] 10. Address: [address] [place] [address] 11. State: [place] 12. Zip Code: [address] 13. Phone: [phone] 14. Date HCP Review initiated: 1. Member marked that they did not have a concern or a difficulty with a major life stressor. 2. Address concerns identified on member questions 2 and 3. History of mental health care: N/A Member's response: Provider's comments: Medications: N/A Member's response: Provider's comments: 3. Member's AUDIT-C screening score was 3. (nothing required) 4. Member did not luis yes on two or more of questions 6a through 6e. 5. Member did not luis More than half the days or nearly every day on question 7a or 7b. 6. Suicide risk evaluation. 6. a. Ask: Over the past month, have you wished you were or wished you could go to sleep and not wake up?: No 6. b. Ask: Have you actually had any thoughts of killing yourself?: No 6. f. 1. Ask: In you lifetime, have you done anything, started to do anything, or prepared to do anything to end your life?: No 6. g. Further risk assessment comments: no concerns 7. Member states that they have not had thoughts or concerns over the past month that they might hurt or lose control with someone. 9. Summary of Provider's identified concerns needing referrals: None 11. Comments: no concerns 12. Address requests as reported on administrative appeals tribunal member questions 7 through 10 (in Cafe Lead Section . Behavioral Health): Request medical appointment: PCP follow up knee/back 13. Supplemental services recommended/information provided: No supplemental services required Date MHA Certified: III. PERIODIC HEALTH ASSESSMENT (PHA) PROVIDER INFORMATION 1. Last Name: CONCHA 2. First Name: CHRISTIAN 3. Middle Name: 4. Service Branch: [facility] 5. 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 EMAIL: [email or web address] 8. Facility: [address] [place], [place] [address] 9. Unit: [address] [place], [place] [address] 10. Address: [address] [place] [address] 11. State: [place] 12. Zip Code: [address] 13. Phone: [phone] 14. Date HCP Review initiated: IV. PERIODIC HEALTH ASSESSMENT PROVIDER RECOMMENDATIONS and REFERRALS 1. Provider concerns with this assessment: No issues or concerns identified V. SUMMARY AND COMMENTS 1. Additional information summarizing findings during the administrative appeals tribunal member assessment: 2. Provider Comments: . INDIVIDUAL MEDICAL READINESS DISPOSITION DETERMINATION MIKE: Ready DEN: Ready IMM: Ready LAB: Ready ME: Ready IMR Status: Fully Medically Ready VII. SERVICE MEDICAL DEPLOYABILITY EVALUATION INDICATED Based on your review of all documentation, is the administrative appeals tribunal member medically deployable without limitations? Reference Kacie 6490.07 Yes (administrative appeals tribunal member DOES NOT currently have a medical condition that limits deployability) Date PHA Completed: END OF [id number] REPORT -- Extracted from:Title: DHA2 Author: DEVIN BRAGG Date: 08/15/24 POST DEPLOYMENT HEALTH ASSESSMENT (PDHA) - [id number] OCT 2023 Last Name: AASHISH First Name: MIYA PETERSONID: [id number] Date of : Sex: Male Service Branch: [employer] Component: [employer] Pay Grade: E6 Date arrived theater: Date departing theater: Summary of provider's identified concerns needing referral: None identified Provider Comments: no further comments. Provider's Name: Capt Shabbir Mcginnis Date: 1. Address concerns identified on deployer questions 1 and 2. Self health rating: N/A Deployer's response: N/A Provider's comments: Change in health post-deployment: N/A Deployer's response: N/A Provider's comments: no acute changes 2. Address wounds, injuries, assaults, etc., occurring during deployment as reported on deployer question 4. Deployer did not indicate concern. 3. Deployment experiences as reported in deployer question 5. Consider in overall assessment; as follow-up questions as indicated. Danger of being killed: N/A Provider's comments: Encountered bodies or saw people killed or wounded: N/A Provider's comments: In direct combat and discharged weapon: N/A Provider's comments: 4. Address concerns identified on deployer questions 6 through 9. Health care visits during deployment: N/A Deployer's response: N/A Provider's comments: Care for combat stress/mental health: N/A Deployer's response: N/A Provider's comments: Hospitalized since return: N/A Deployer's response: N/A Provider's comments: Physical limitations/problems: Deployer indicated concern or yes Deployer's response: Provider's comments: he reports bilateral shoulder, knees and lower back pain. 5. a. Deployer had an injury based on responses to question 10.a. b. Deployer did NOT have a possible concussion based on responses to questions 10.a. through 10.c. 6. Post-deployment general symptoms/health concerns. List of symptoms reported as Bothered a Lot on Deployer Questions 11a. through 11ee.: None List of symptoms reported as Bothered a Little on Deployer Questions 11a. through 11ee.: Back pain, Pain in the arms, legs, or joints (knees, hips, etc.), Dizziness, Feeling tired or having low energy, Balance problems Physical symptom (PHQ-15) severity score for Deployer Questions 11a. through 11o.: Minimal a. Deployer does not have evidence of high generalized post-deployment physical symptoms. 7. Deployer marked that they did not have a concern or a difficulty with a major life stressor. 8. Address concerns as described on deployer questions 13 and 14. History of mental health care: N/A Deployer's response: Provider's comments: none Medications: N/A Deployer's response: Provider's comments: none 9. Deployer's AUDIT-C screening score was 2. (nothing required) 10. Deployer did not luis yes on two or more of questions 16a through 16e. 11. Deployer did not luis More than half the days or nearly every day on question 17a or 17b. 12. Deployer did not indicate a worry or concern about a possible environmental/work exposure. 13. Deployer marked NO to the question about possible exposure to depleted uranium. 14. Deployment location did not require malaria prophylaxis. 15. Deployer indicated they were NOT bitten or scratched during this deployment. 16.a. Deployer has not wished they were or wished they could go to sleep and not wake up. 16.b. Deployer has not actually had thoughts of killing themself. 16.f.1. Deployer has not ever done anything, started to do anything, or prepared to do anything to end their life. 16.g. Further risk assessment: 16.h. Deployer does not pose a current risk for harm to self. 17. Deployer states that they have not had thoughts or concerns over the past month that they might hurt or lose control with someone. 23. Supplemental services recommended/information provided: No Supplemental Services Required 1. Good : Overall how would you rate your health during the PAST MONTH? 2. Somewhat better now than before I deployed : Compared to before this deployment, how would you rate your health in general now? 3. Not at all : How often did you smoke tobacco (For example cigarettes, cigars, pipe, Or hookah) during your deployment? 4. No : Were you wounded, injured, assaulted or otherwise hurt during your deployment? 5. During your deployment: 5.a. No : Did you ever feel like you were in great danger of being killed? 5.b. No : Did you encounter bodies or see people killed or wounded during this deployment? 5.c. No : Did you engage in direct combat where you discharged a weapon? 6. 2-3 visits : How many times during your deployment did you visit a health care provider for a medical or dental health problem/concern? 7. No : During this deployment did you receive care for combat stress or a mental health problem/concern? 8. No : During this deployment did you have to spend one or more nights in a hosptial as as patient? 9. Somewhat difficult : During the PAST MONTH, how difficult have physical health problems (illness or injury) made it for you to do your work or other regular daily activities? 10.a. During this deployment, did any of the following events happen to you? (Luis all that apply) No : (1) Blast or explosion (e.g. IED, RPG, EFP, land mine, grenade, etc.)? No : (2) Vehicular accident/crash (any vehicle including aircraft)? (3) Fragment wound or bullet wound? No : a. Head or neck? No : b. Rest of body? Yes : (4) Other injury (e.g., sports injury, accidental fall, etc.)? I have on and off lower back issues. Had a bad flare up during basketball. : If yes to any of the above, please explain 10.b. As a result of any of the events in 10.a., did you receive a jolt or blow to your head that IMMEDIATELY resulted in: No : (1) Losing consciousness? (knocked out) No : (2) Losing memory of events before or after the injury? No : (3) Seeing stars, becoming disoriented, functioning differently, or nearly blacking out? 10.c. 0 : How many total times during this deployment did you receive a blow or jolt to your head? 11. During the PAST MONTH, how much have you been bothered by any of the following problems? (See health care provider item #6 above) 12.a. None : Over the PAST MONTH, what major life stressors, if any, have you experienced that are a cause of significant concern or make it difficult for you to do your work, take care of things at home, or get along with other people? 13. No : In the PAST YEAR, did you receive care for any mental health condition or concern such as, but not limited to post traumatic stress disorder (PTSD), depression, anxiety disorder, alcohol abuse or substance abuse? 14. None : What prescription or over-the counter medications (including herbals/supplements) for sleep, pain, combat stress, or a mental health problem are you CURRENTLY taking? 15.a. Monthly : How often do you have a drink containing alcohol? 15.b. 1 or 2 : How many drinks containing alcohol do you have on a typical day when you are drinking? 15.c. Less than monthly : How often do you have six or more drinks on one occasion? 16. Have you ever had any experience that was so frightening, horrible, or upsetting that in the PAST MONTH, you: 16.a. No : Have had nightmares about it or thought about it when you did not want to? 16.b. No : Tried hard not to think about it or went out of your way to avoid situations that remind you of it? 16.c. No : Were constantly on guard, watchful or easily startled? 16.d. No : Milton numb or detached from others, activities, or your surroundings 16.e. No : [place] guilt or unable to stop blaming yourself or others for the event(s) or any problems the event(s) may have caused? 17. Over the LAST 2 WEEKS, how often have you been bothered by the following problems? 17.a. Not at all : Little interest or pleasure in doing things 17.b. Not at all : Feeling down, depressed, or hopeless 18. No : Are you worried about your health because you believe you were exposed to something in the environment while deployed? 19.a. Not Sure : During this deployment were you based or stationed at a location where an open burn pit was used? 19.b. Not Sure : During this deployment were you exposed to toxic airborne chemicals or other air-borne contaminants? 19.c. No : For Service members, are you enrolled in the Airborne Hazards and Open Burn Pit Registry? 19.d. Wish to Enroll : For Service members, federal law requires eligible members to enroll in the Airborne Hazards and Open Burn Pit Registry or opt-out. If eligible, choose one: 20. No : Do you think you were exposed to any chemical, biological, or radiological warfare agents during this deployment? 21. No : Were you in a vehicle hit by a depleted uranium (DU) round; inside a destroyed vehicle that contained DU; or closely inspect such a vehicle? 22. No : Were you told to take medicines to prevent malaria? 23. No : Were you bitten or scratched by an animal during your deployment? 24. Yes : Would you like to schedule an appointment with a health care provider to discuss any health concern(s)? 25. No : Are you interested in receiving information or assistance for a stress, emotional or alcohol concern? 26. No : Are you interested in receiving assistance for a family or relationship concern? 27. No : Would you like to schedule a visit with a spool carrier, mental health care provider, or a community support counselor? Extracted from:Title: DHA1 Author: GABRIELLE MADERA Date: 12/01/23 PRE-DEPLOYMENT HEALTH ASSESSMENT ([id number] AUG 2015) Last Name: AASHISH First Name: MIYA Social Security Number: [id number] Date of : Sex: Male Service Branch: [employer] Component: [employer] Pay Grade: E6 Estimated date of upcoming deployment: Country: [place] Number of previous deployments: 1 Medical assessment/disposition: Deployable Medical assessment/disposition comments: Summary of provider's identified concerns needing referral: None identified Provider's Name: GONZALO GIGI Date: 1. Address concerns identified on deployer questions 1 through 8. Self health rating: N/A Deployer's response: N/A Provider's comments: MEB or PEB: Deployer's response: N/A Provider's comments: Medical, dental or mental health concern: N/A Deployer's response: N/A Provider's comments: Head Injury: N/A Deployer's response: N/A Provider's comments: Medications: N/A Deployer's response: N/A Provider's comments: History of mental health care: N/A Deployer's response: N/A Provider's comments: 2. Member marked that they were not bothered by noises in head or ears or trouble hearing. 3. Deployer's AUDIT-C screening score was 5. Number of drinks per week: 2 Maximum number of drinks per occasion: 2 Referral is not indicated because there is no significant impairment. 4. Deployer did not luis yes on two or more of questions 11a through 11d. 5. Deployer did not luis More than half the days or nearly every day on question 12a or 12b. 6. Deployer marked that they did not have a concern or a difficulty with a major life stressor. 7. Deployer has not been bothered by thoughts that they would be better off or of hurting themself in some way. 8. Deployer states that they have not had thoughts or concerns over the past month that they might hurt or lose control with someone. 9. Medical history review completed. a. Significant findings related to ability to deploy: b. There is no evidence of deployment limiting conditions or medications. 16. Supplemental services recommended/information provided: 1. Overall how would you rate your health during the PAST MONTH? : Good 2. Are you CURRENTLY on a profile, limited duty, waiting on a MOS/Medical Retention Board (MMRB) decision, or being referred to a medical evaluation board (MEB) or physical evaluation board (PEB)? : No 3. How often do you smoke tobacco (for example cigarettes, cigars, pipe or hookah)? : Not at all 4. What problems, questions or concerns do you have about your medical, dental, or mental health? : No 6. In the PAST YEAR did you receive care for a head injury? : No 7. What prescription or over-the counter medications (including herbals/supplements) for sleep, pain, combat stress, or mental health conditions or concerns are you CURRENTLY taking? : None 8. During the PAST MONTH, how much have you been bothered by any of the following problems? : No 9. During the PAST MONTH, how much have you been bothered by any of the following problems? 9. a. Noises in your head or ears (such as ringing, buzzing, crickets, humming, tone, etc.) Not bothered at all 9. b. Trouble hearing Not bothered at all 10. a. How often do you have a drink containing alcohol? 2-4 times a month 10. b. How many drinks containing alcohol do you have on a typical day when you are drinking? 3 or 4 10. c. How often do you have six or more drinks on one occasion? Monthly 11. Have you ever had any experience that was so frightening, horrible, or upsetting that in the PAST MONTH, you: 11. a. Have had nightmares about it or thought about it when you did not want to? No 11. b. Tried hard not to think about it or went out of your way to avoid situations that remind you of it? No 11. c. Were constantly on guard, watchful or easily startled? No 11. d. [place] numb or detached from others, activities, or your surroundings No 12. Over the LAST 2 WEEKS, how often have you been bothered by the following problems? 12. a. Little interest or pleasure in doing things Not at all 12. b. Feeling down, depressed, or hopeless Not at all 13. a. Over the PAST MONTH, what major life stressors have you experienced that are a cause of significant concern or make it difficult for you to do your work, take care of things at home, or get along with other people (for example, serious conflicts with others, relationship problems, or a legal, disciplinary or financial problem)? : None Future Appointments Appointment Date: 02/24/2025 10:30:00 AM Scheduled Provider: JEANA PERALES DMD, Dentistry Location: [address] [place] [address] Appointment Type: Dental Visit 02/19/2025 [id number] Assessment and Plan Extracted from:Title : Office Clinic Note - Vertigo, R Shoulder, B/L Knee Author: DEVIN BURGESS MD Date: 10/18/24 1.?Vertigo ?Patient with a history of vertigo episodically now x2 episodes lasting about 1-2 weeks per episode with reproducible symptoms during Frandy-Hallpike maneuver in clinic. Patient otherwise asympomatic at?this time. Jo-Ann maneuver not performed due to absence of symptoms at this time. DDx?also includes vestibular neuritis, labyrinthitis. No coexisting hearing changes or problems. No other neurologic signs or symptoms.? - Discussed repositioning maneuver which patient will review and perform if episode returns - Return precautions discussed? - Repeat meclizine if helpful and if repeats? 2.?Vision disorder Patient instructed by optometry that he has symptoms of early cataracts and was recomended?opthalmology. Not fully discussed today.? - Referral optho places? - Follow-up based on their recommendations? Ordered: Referral Request 2.0 - DoD ? 3.?Right shoulder pain ?Patient is a?33 Years?year old?Male?with a history and exam as documented suggestive of?supraspinatus injury?likely 2/2 to chronic degenerative changes associated with lifestyle (i.e. baseball, lifting weights). ? ? Plan: ? - Relative rest, ice, heat, activity modification ? - Home exercise program discussed ? ? Meds: ? - NSAIDs and Acetaminophen as needed and as ordered ? ? Imaging: ? -Radiographs:?Not indicated ? ? Referrals: ? -Physical Therapy:?ordered at this time ? ? Follow: up:?in 4-6 weeks if symptoms not improving with current plan ? Ordered: Referral Request 2.0 - DoD ? 4.?Pain of bilateral knee joints ?Patient is a?33 Years?year old?Male?with a history and exam as documented suggestive of?patellofemoral pain?syndrome . No antecedent?falls nor trauma.? ? Plan: ? - Relative rest, ice, heat, activity modification ? - Home exercise program discussed ? -?The [place] [employer] discussed and included in after visit summary ? -?Injections - not indicated ? ? Meds: ? - NSAIDs and Acetaminophen as needed and as ordered ? ? Imaging: ? -Radiographs:?Not indicated ? ? Referrals: ? -Physical Therapy:?ordered at this time ? Ordered: Referral Request 2.0 - DoD ? ? Readiness - No profiles/No DR/ No MR/ no FR ? Clinic return and ER precautions provided ? All questions answered/pt acknowledges understanding ? ? Please note that this document was dictated using [employer] Spe[employer] and I apologize for any assistant corporation counsel errors I have missed and therefore should be taken within appropriate clinical context. ? ? Patient seen and examined on day of encounter with all studies (including labs and radiology) reviewed as above. ? ? Note to patient reading this note: the Cares Act makes medical notes available to patient's in the interest of transparency.? Be advised this is a medical document.? It is intended primarily as srxm-pn-hckk communication.? It is written in medical imaging which may contain abbreviations or verbiage that are unfamiliar.? It may appear as blunter or direct. This is because medical documents are intended to carry relevant information, facts is evident, and the clinical opinion of the physician only has formulated at the time of writing.? ? ? I spent 60 minutes?in direct patient care of this patient, in addition to time spent in chart review and documentation.? ? Devin Burgess Jr., MD [facility] Family?Medicine Physician? [employer] [address], [place] [address] ? Extracted from:Title: PDMHA Author: KT HAMILTON Date: 09/07/24 POST-DEPLOYMENT MENTAL HEALTH ASSESSMENT Date: Last Name: AASHISH First Name: MIYA Peterson ID Number: [id number] Date of : Sex: Male Service Branch: [employer] Component: Reserves Pay Grade: E6 Date departed theater: Country: [place] Summary of provider's identified concerns needing referral: Recommended referal(s): Referral Time Comments: SECTION II. MENTAL HEALTH ASSESSMENT (MHA) PROVIDER INFORMATION 1. Last Name: CONCHA 2. First Name: CHRISTIAN 3. Middle Name: 4. Service Branch: [employer]in [employer] 5. 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 EMAIL: [email or web address] 8. Facility: [facility] 9. Unit: [facility] 10. Address: [address] [place] [address] 11. State: [facility]. Zip Code: [address] 13. Phone: [phone] Date: 1. Deployer marked that they did not have a concern or a difficulty with a major life stressor. 2. Address concerns identified on deployer questions 2 and 3. History of mental health care: N/A Deployer's response: Provider's comments: Medications: N/A Deployer's response: Provider's comments: 3. Deployer's AUDIT-C screening score was 3. (nothing required) 4. Deployer did not luis yes on three or more of questions 5a through 5e. 5. Deployer did not luis More than half the days or nearly every day on question 6a or 6b. 6.a. Deployer has not wished they were or wished they could go to sleep and not wake up. 6.b. Deployer has not actually had thoughts of killing themself. 6.f.1. Deployer has not ever done anything, started to do anything, or prepared to do anything to end their life. 6.g. Further risk assessment: no concerns 6.h. Deployer does not pose a current risk for harm to self. 7. Deployer states that they have not had thoughts or concerns over the past month that they might hurt or lose control with someone. 13. Supplemental services recommended/information provided: No Supplemental Services Required 1. a. [ None ] Over the PAST MONTH, which major life stressors, if any, have you experienced that are a cause of significant concern or make it difficult for you to do your work, take care of things at home, or get along with other people? 2. [ No ] In the PAST YEAR did you receive care for any mental health condition or concern such as, but not limited to post traumatic stress disorder (PTSD), depression, anxiety disorder, alcohol abuse or substance abuse? 3. [ None ] What prescription or over-the counter medications (including herbals/supplements) for sleep, pain, combat stress, or a mental health problem are you CURRENTLY taking? 4. a. [ 2-4 times a month ] How often do you have a drink containing alcohol? 4. b. [ 1 or 2 ] How many drinks containing alcohol do you have on a typical day when you are drinking? 4. c. [ Less than monthly ] How often do you have six or more drinks on one occasion? 5. Have you ever had any experience that was so frightening, horrible, or upsetting that in the PAST MONTH, you: 5. a. [ No ] Have had nightmares about it or thought about it when you did not want to? 5. b. [ No ] Tried hard not to think about it or went out of your way to avoid situations that remind you of it? 5. c. [ No ] Were constantly on guard, watchful or easily startled? 5. d. [ No ] [place] numb or detached from others, activities, or your surroundings? 5. e. [ No ] [place] guilt or unable to stop blaming yourself or others for the event(s) or any problems the event(s) may have caused? 6. Over the LAST 2 WEEKS, how often have you been bothered by the following problems? 6. a. [ Not at all ] Little interest or pleasure in doing things 6. b. [ Not at all ] Feeling down, depressed, or hopeless 7. [ No ] Would you like to schedule an appointment with a health care provider to discuss any health concern(s)? 8. [ No ] Are you interested in receiving information or assistance for a stress, emotional or alcohol concern? 9. [ No ] Are you interested in receiving assistance for a family or relationship concern? 10. [ No ] Would you like to schedule a visit with a spool carrier or a community support counselor? Extracted from:Title: PHA 2023 Author: KT HAMILTON Date: 09/06/24 ANNUAL PERIODIC HEALTH ASSESSMENT I. COOK HELPER FRUIT INFORMATION AND DEMOGRAPHICS (SMI) 1. Last Name: AASHISH 2. First Name: MIYA 3. Middle Name: ELAINA 4. Assessment Date: 5. : 6. Age: 33 7. Sex: M 8. DoD ID Number: [id number] 9. Service Branch: [employer] 10. 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 Unit Name: [address] 14. Duty Station/Location: [place] 15. [facility]: [id number] 16. Is this your first Periodic Health Assessment (PHA)?: N 17. Are you enrolled in a secure messaging system with your health care provider?: 18. Current contact information: Preferred Method: Day Time Phone DSN: Day Time Phone: [phone] Night Time Phone: [phone] Email 1: Email 2: Address: [address] [place] [address] City: [place] State: [place] Zip Code: [address] 19. Point of contact who can always reach you: Name: Kierra Beatty Phone 1: [phone] Phone 2: EMAIL: [email or web address] Address: [address] [facility] City: [place] State: [place] Zip Code: [address] II. DEPLOYMENT INFORMATION (DEP) 1. [ 1 ] Total number of deployments in the PAST 5 YEARS 2. [ [place] ] Primary country of last deployment 3. [ ] Date departed theater 4. [ N ] Are you going to deploy within the NEXT 120 DAYS? III. 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 [ No ] Does your specialty require an operational duty physical exam? 4. [ No ] Are you currently enrolled in a medical surveillance/occupational health program?: No IV. MEDICAL CONDITIONS (MIKE): 1. Since your last PHA, have you experienced any of the following health conditions, and if so, what is your status? [ ] Conditions with no medical care [ Periods of dizziness, fainting, or loss of consciousness ] Conditions with medical care, but no longer under treatment [ ] Conditions with medical care, and NOW under treatment 2. Since your last PHA, have you experienced any of the following health conditions, and if so, what is your status? [ ] Conditions with no medical care [ Recurring muscle, joint, or low back pain ] Conditions with medical care, but no longer under treatment [ ] Conditions with medical care, and NOW under treatment 3. For any condition marked YES in question 1 or 2, are you currently on any profile or limited duty for that condition? [ ] Conditions 4. [ Not Sure ] Have you been based or stationed at a location where an open burn pit was used? 5. [ Not Sure ] Have you been exposed to toxic airborne chemicals or other airborne contaminants? 6. [ No ] Are you enrolled in the Airborne Hazards and Open Burn Pit Registry? 7. [ Yes ] Federal law requires eligible members to enroll in the Airborne Hazards and Open Burn Pit Registry or opt-out. If eligble, choose one: 8. Have you had any surgery since your last PHA?: No 10.a. [ No ] Since your last PHA, has a health care provider recommended surgery(s) that you have not had? 11.a. [ No ] Do you currently require hearing aids, special medical supplies, CPAP, adaptive equipment, assistive technology devices, and/or other special accommodations? 12.a. [ No ] Do you have a waiver or profile for any part of your Service's physical fitness test? 13.a. [ No ] Do you have any problems wearing a gas mask, ballistic helmet, body armor, and/or chemical/biological protective garments? 14.a. [ No ] Have you ever been told by a health care provider that you SHOULD NOT receive an immunization for medical reasons? 15.a. [ No ] Do you have a permanent profile or an Assignment Limitation Code C? 16.a. [ No ] Are you on a temporary profile or limited duty? 17. [ 0 ] During the PAST 2 years, how many times have you been placed on a temporary profile or on limited duty? V. INDIVIDUAL MEDICAL READINESS (IMR) 1. [ No ] Do you have any allergies? 3. [ Not required ] Do you have red medical warning dog tags? 4. [ Yes ] Do you wear corrective lenses? 5. [ 1 ] How many pairs of glasses do you have? 6. [ Yes ] Do you have gas mask inserts? . BEHAVIORAL HEALTH (MHA) 1. a. [ None ] Over the PAST MONTH, what major life stressors have you experienced that are a cause of significant concern or make it difficult for you to do your work, take care of things at home, or get along with other people (for example, serious conflicts with others, relationship problems, or a legal, disciplinary or financial problem)? 2. a. [ No ] In the PAST YEAR did you receive care for any mental health condition or concern such as, but not limited to post traumatic stress disorder (PTSD), depression, anxiety disorder, alcohol abuse or substance abuse? 3. [ None ] What prescription or over-the counter medications (including herbals/supplements) for sleep, pain, combat stress, or a mental health problem are you CURRENTLY taking? 4. a. [ Yes ] In the past 12 months, have you gambled? 4. b. [ No ] During the past 12 months, have you become restless, irritable, or anxious when trying to stop/cut down on gambling? 4. c. [ No ] During the past 12 months, have you tried to keep your family or friends from knowing how much you gambled? 4. d. [ No ] During the past 12 months, did you have such financial trouble as a result of your gambling that you had to get help with living expenses from family, friends, or welfare? 5. a. [ 2-4 times a month ] How often do you have a drink containing alcohol? 5. b. [ 1 or 2 ] How many drinks containing alcohol do you have on a typical day when you are drinking? 5. c. [ Less than monthly ] How often do you have six or more drinks on one occasion? 6. Have you ever had any experience that was so frightening, horrible, or upsetting that in the PAST MONTH, you: 6. a. [ No ] Have had nightmares about it or thought about it when you did not want to? 6. b. [ No ] Tried hard not to think about it or went out of your way to avoid situations that remind you of it? 6. c. [ No ] Were constantly on guard, watchful or easily startled? 6. d. [ No ] [place] numb or detached from others, activities, or your surroundings? 6. e. [ Not answered ] [place] guilt or unable to stop blaming yourself or others for the event(s) or any problems the event(s) may have caused? 7. Over the LAST 2 WEEKS, how often have you been bothered by the following problems? 7. a. [ Not at all ] Little interest or pleasure in doing things 7. b. [ Not at all ] Feeling down, depressed, or hopeless 8. [ Yes ] Would you like to schedule an appointment with a health care provider to discuss any health concern(s)? 9. [ No ] Are you interested in receiving information or assistance for a stress, emotional or alcohol concern? 10. [ No ] Are you interested in receiving assistance for a family or relationship concern? 11. [ No ] Would you like to schedule a visit with a spool carrier, mental health care provider, or a community support counselor? VII. FAMILY HISTORY AND LIFESTYLE (LIF) 1. [ Good ] Overall, how would you rate your health during the PAST MONTH? 2. [ None/Don't Know ] Member indicates that family members have the following problems 6. [ Yes ] I participate in moderate intensity physical activites at least 2.5 hours, or a combination of moderate and vigorous aerobic activites, for at least 75 minutes per week. 7. In a typical week, I do physical activities specifically designed to STRENGTHEN my muscles: [ 4 ] Day(s) per week 8. [ None ] What prescriptions or uocl-zqx-ldvpdzl medications are you CURRENTLY taking for health problems on a ROUTINE BASIS? 9. Which of the following products have you taken since your last PHA: Protein Supplements/Creatine: Every other day Performance Enhancers/Pre-Workout Products: Every other day Herbal or Botanical Supplements in pills, gels, and/or tablet form: Every other day Multi-Vitamins: Every other day Nelson-3 Supplements: Once a day 11. Think about the PAST 30 DAYS. How often did you eat/drink the following foods/beverages? [ 1 serving per day ] Fruits [ 1 serving per day ] Vegetables [ 1 serving per day ] Starchy Vegetables [ 1 serving per day ] Whole Grains [ 1 serving per day ] Dairy and Calcium Containing Foods [ Rarely or Never ] Fish [ 1 serving per day ] Lean Protein [ 1 or 2 servings per week ] Sugar-Sweetened Beverages 12. [ Don't Know ] Have you had a cholesterol check by a health animal care taker within the PAST 5 YEARS? 13.a. In the PAST 30 DAYS, which of the following products have you used on at least one day? None 15. Which of the following best describes your past tobacco use? I used tobacco in the past, but quit in 2023 16. [ No ] Are you regularly exposed to secondhand smoke? 17. [ 7 to 9 hours ] During the LAST 2 WEEKS, how many hours of sleep did you get on most days? 18. [ No ] During the LAST 2 WEEKS, have you felt impaired or unable to adequately perform due to sleepiness or poor quality sleep? 19. [ No ] Have you had any unexplained weight loss or gain since your last PHA? 20. Member is not at risk for sexually transmitted infections. 22. Since your last PHA, what, if anything, have you and your partner used to keep from getting ? [ My partner(s) or I intend to get in the next year. ] I am not actively taking steps to prevent as 23. [ No ] In the last year, have you or your partner had a scare, where you were not trying to get but were worried enough to use a home test? IX. RESERVE COMPONENT (RES) 1. [ Yes ] Do you have an injury, illness, Or disease which was incurred or aggravated while in a duty status since your last PHA? 2. [ No ] Have you completed or are you pending a Line of Duty for that injury, illness, or disease? 3. What is your injury, illness, or disease? When did it occur? back / knee issues: 4. [ Yes - ] Are you currently coverered under a health insurance policy? 5.a. [No, I have never applied for Worker's Compensation ] Do you have any current physical or mental health limitations related to a Worker's Compensation claim? 6. [ No ] Have you applied for or have you received a VA disability rating? X. OTHER MEDICAL (OTH) 1. [ 1 ] Rate the amount of pain you have had, on average, over the PAST 24 HOURS 2. [ No ] Are you receiving treatment for pain? 3. [ No ] Since your last PHA, have you received care or treatment for any medical and/or mental health condition(s) from a civilian or non- facility? 5. Member acknowledged responsibility for reporting health issues. 7. [ Yes ] Woud you like to schedule an appointment with a health care provider to discuss any health concerns? XI. SEPARATION AND LONG TERM 1. [ No ] Are you planning to separate or retire within the next year from Active Duty or [place] Duty (activated for greater than 30 continuous days) OR do you intend to file a claim for disability compensation with the Veterans Benefits Administration? PART B. RECORD REVIEW AND RECOMMENDATIONS I. RECORD REVIEWER INFORMATION 1. Last Name: MAHSA 2. First Name: DEVIN 3. Middle Name: 4. Service Branch: [employer] 5. 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 EMAIL: [email or web address] 8. Facility: [facility] 9. Unit: [facility] 10. Address: [address] [place] [address] 11. State: [place] 12. Zip Code: [address] 13. Phone: [phone] 14. Date Record Review: II. MEDICAL SCREENING 1. [ ] Date of administrative appeals tribunal member's most recent PHA 2. [ 6 feet 0 inches Date: ] administrative appeals tribunal member's most recently documented height 3. [ 250 pounds Date: ] administrative appeals tribunal member's most recently documented weight 4. [ 122/78 Date: ] administrative appeals tribunal member's most recently documented blood pressure reading 5. [ No ] Does the administrative appeals tribunal member have a history of abnormal blood pressure since their last PHA? 6. [ Yes ] Does the administrative appeals tribunal member have a laboratory test of sickle cell trait documented in their permanent medical record? 7. [ No Cholesterol Test Documented ] What is the date of the administrative appeals tribunal member's most recently documented cholesterol test? 9. [ No Active Medications Documented ] List of administrative appeals tribunal member's active medications listed in their permanent medical record 10. [ No ] Is there a discrepancy between the active medication record review and the administrative appeals tribunal member's self-reported list of medications? 11. [ No Outside Care Documented ] List documented significant care the administrative appeals tribunal member has received since their last PHA from a provider OUTSIDE the Health System 12. [ No ] Is there a discrepancy between the administrative appeals tribunal member's list of OUTSIDE care (from OT5), and the OUTSIDE care found in the record? 13. [ [id number] LBP 12Rts40 LBP chronic 27Brs65 dizziness/shaving wavier ] List documented significant care the administrative appeals tribunal member has received since their last PHA from a provider INSIDE the Health System 15. [ Not Answered ] Confirm that vaccine exemptions are listed in the medical record for each vaccine listed IV. FAMILY HISTORY AND LIFESTYLE 1. [ Yes ] Does the [id number] reflect the administrative appeals tribunal member's reported family history? . DEPLOYMENT-RELATED HEALTH ASSESSMENTS 1. [ No ] Based on your check of records, does the administrative appeals tribunal member have any due or overdue deployment health assessments which need to be completed with this PHA? VII. INDIVIDUAL MEDICAL READINESS 1. [ No ] Does the administrative appeals tribunal member have an Assignment Limitation Code C? 3. [ Classification: 2 ] Most recently documented dental exam 4. [ No: Influenza, [place] ] Is the administrative appeals tribunal member current on all required immunizations in the immunization tracking system? 5. [ Yes ] Is the administrative appeals tribunal member current with Service-specific requirements for glasses and gas mask inserts? 6. Does the administrative appeals tribunal member have the following laboratory tests documented in their permanent medical record? [ Yes ] HIV test within the PAST 24 months [ Yes ] G6PD results on file [ Yes ] Blood type and Rh on file [ Yes ] DNA test on file IX. ADDITIONAL RECORD REVIEWER COMMENTS 1. This record review indicates the potential need for provider notification or referral: Provider Notified 2. Additional comments about this record review that need to be forwarded to the Health Secure Software Assessor completing PART C: see [facility] Date Record Review Completed: PART C. HEALTH CARE PROVIDER I. MENTAL HEALTH ASSESSMENT (MHA) PROVIDER INFORMATION 1. Last Name: CONCHA 2. First Name: CHRISTIAN 3. Middle Name: 4. Service Branch: [employer] 5. 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 EMAIL: [email or web address] 8. Facility: [facility] 9. Unit: [facility] 10. Address: [address] [place] [address] 11. State: [place] 12. Zip Code: [address] 13. Phone: [phone] 14. Date HCP Review initiated: 1. Member marked that they did not have a concern or a difficulty with a major life stressor. 2. Address concerns identified on member questions 2 and 3. History of mental health care: N/A Member's response: Provider's comments: Medications: N/A Member's response: Provider's comments: 3. Member's AUDIT-C screening score was 3. (nothing required) 4. Member did not luis yes on two or more of questions 6a through 6e. 5. Member did not luis More than half the days or nearly every day on question 7a or 7b. 6. Suicide risk evaluation. 6. a. Ask: Over the past month, have you wished you were or wished you could go to sleep and not wake up?: No 6. b. Ask: Have you actually had any thoughts of killing yourself?: No 6. f. 1. Ask: In you lifetime, have you done anything, started to do anything, or prepared to do anything to end your life?: No 6. g. Further risk assessment comments: no concerns 7. Member states that they have not had thoughts or concerns over the past month that they might hurt or lose control with someone. 9. Summary of Provider's identified concerns needing referrals: None 11. Comments: no concerns 12. Address requests as reported on administrative appeals tribunal member questions 7 through 10 (in Cafe [employer] Section . Behavioral Health): Request medical appointment: PCP follow up knee/back 13. Supplemental services recommended/information provided: No supplemental services required Date MHA Certified: III. PERIODIC HEALTH ASSESSMENT (PHA) PROVIDER INFORMATION 1. Last Name: CONCHA 2. First Name: CHRISTIAN 3. Middle Name: 4. Service Branch: [employer] 5. 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 EMAIL: [email or web address] 8. Facility: [facility] 9. Unit: [address] [place], [place] [address] 10. Address: [address] [place] [address] 11. State: [place] 12. Zip Code: [address] 13. Phone: [phone] 14. Date HCP Review initiated: IV. PERIODIC HEALTH ASSESSMENT PROVIDER RECOMMENDATIONS and REFERRALS 1. Provider concerns with this assessment: No issues or concerns identified V. SUMMARY AND COMMENTS 1. Additional information summarizing findings during the administrative appeals tribunal member assessment: 2. Provider Comments: . INDIVIDUAL MEDICAL READINESS DISPOSITION DETERMINATION MIKE: Ready DEN: Ready IMM: Ready LAB: Ready ME: Ready IMR Status: Fully Medically Ready VII. SERVICE MEDICAL DEPLOYABILITY EVALUATION INDICATED Based on your review of all documentation, is the administrative appeals tribunal member medically deployable without limitations? Reference Kacie 6490.07 Yes (administrative appeals tribunal member DOES NOT currently have a medical condition that limits deployability) Date PHA Completed: END OF [id number] REPORT -- Extracted from:Title: DHA2 Author: MAHSA DEVIN Mónica Date: 08/15/24 POST DEPLOYMENT HEALTH ASSESSMENT (PDHA) - [id number] OCT 2023 Last Name: AASHISH First Name: MIYA DODID: [id number] Date of : Sex: Male Service Branch: [employer] Component: [employer] Pay Grade: E6 Date arrived theater: Date departing theater: Summary of provider's identified concerns needing referral: None identified Provider Comments: no further comments. Provider's Name: Capt Shabbir Mcginnis Date: 1. Address concerns identified on deployer questions 1 and 2. Self health rating: N/A Deployer's response: N/A Provider's comments: Change in health post-deployment: N/A Deployer's response: N/A Provider's comments: no acute changes 2. Address wounds, injuries, assaults, etc., occurring during deployment as reported on deployer question 4. Deployer did not indicate concern. 3. Deployment experiences as reported in deployer question 5. Consider in overall assessment; as follow-up questions as indicated. Danger of being killed: N/A Provider's comments: Encountered bodies or saw people killed or wounded: N/A Provider's comments: In direct combat and discharged weapon: N/A Provider's comments: 4. Address concerns identified on deployer questions 6 through 9. Health care visits during deployment: N/A Deployer's response: N/A Provider's comments: Care for combat stress/mental health: N/A Deployer's response: N/A Provider's comments: Hospitalized since return: N/A Deployer's response: N/A Provider's comments: Physical limitations/problems: Deployer indicated concern or yes Deployer's response: Provider's comments: he reports bilateral shoulder, knees and lower back pain. 5. a. Deployer had an injury based on responses to question 10.a. b. Deployer did NOT have a possible concussion based on responses to questions 10.a. through 10.c. 6. Post-deployment general symptoms/health concerns. List of symptoms reported as Bothered a Lot on Deployer Questions 11a. through 11ee.: None List of symptoms reported as Bothered a Little on Deployer Questions 11a. through 11ee.: Back pain, Pain in the arms, legs, or joints (knees, hips, etc.), Dizziness, Feeling tired or having low energy, Balance problems Physical symptom (PHQ-15) severity score for Deployer Questions 11a. through 11o.: Minimal a. Deployer does not have evidence of high generalized post-deployment physical symptoms. 7. Deployer marked that they did not have a concern or a difficulty with a major life stressor. 8. Address concerns as described on deployer questions 13 and 14. History of mental health care: N/A Deployer's response: Provider's comments: none Medications: N/A Deployer's response: Provider's comments: none 9. Deployer's AUDIT-C screening score was 2. (nothing required) 10. Deployer did not luis yes on two or more of questions 16a through 16e. 11. Deployer did not luis More than half the days or nearly every day on question 17a or 17b. 12. Deployer did not indicate a worry or concern about a possible environmental/work exposure. 13. Deployer marked NO to the question about possible exposure to depleted uranium. 14. Deployment location did not require malaria prophylaxis. 15. Deployer indicated they were NOT bitten or scratched during this deployment. 16.a. Deployer has not wished they were or wished they could go to sleep and not wake up. 16.b. Deployer has not actually had thoughts of killing themself. 16.f.1. Deployer has not ever done anything, started to do anything, or prepared to do anything to end their life. 16.g. Further risk assessment: 16.h. Deployer does not pose a current risk for harm to self. 17. Deployer states that they have not had thoughts or concerns over the past month that they might hurt or lose control with someone. 23. Supplemental services recommended/information provided: No Supplemental Services Required 1. Good : Overall how would you rate your health during the PAST MONTH? 2. Somewhat better now than before I deployed : Compared to before this deployment, how would you rate your health in general now? 3. Not at all : How often did you smoke tobacco (For example cigarettes, cigars, pipe, Or hookah) during your deployment? 4. No : Were you wounded, injured, assaulted or otherwise hurt during your deployment? 5. During your deployment: 5.a. No : Did you ever feel like you were in great danger of being killed? 5.b. No : Did you encounter bodies or see people killed or wounded during this deployment? 5.c. No : Did you engage in direct combat where you discharged a weapon? 6. 2-3 visits : How many times during your deployment did you visit a health care provider for a medical or dental health problem/concern? 7. No : During this deployment did you receive care for combat stress or a mental health problem/concern? 8. No : During this deployment did you have to spend one or more nights in a hosptial as as patient? 9. Somewhat difficult : During the PAST MONTH, how difficult have physical health problems (illness or injury) made it for you to do your work or other regular daily activities? 10.a. During this deployment, did any of the following events happen to you? (Luis all that apply) No : (1) Blast or explosion (e.g. IED, RPG, EFP, land mine, grenade, etc.)? No : (2) Vehicular accident/crash (any vehicle including aircraft)? (3) Fragment wound or bullet wound? No : a. Head or neck? No : b. Rest of body? Yes : (4) Other injury (e.g., sports injury, accidental fall, etc.)? I have on and off lower back issues. Had a bad flare up during basketball. : If yes to any of the above, please explain 10.b. As a result of any of the events in 10.a., did you receive a jolt or blow to your head that IMMEDIATELY resulted in: No : (1) Losing consciousness? (knocked out) No : (2) Losing memory of events before or after the injury? No : (3) Seeing stars, becoming disoriented, functioning differently, or nearly blacking out? 10.c. 0 : How many total times during this deployment did you receive a blow or jolt to your head? 11. During the PAST MONTH, how much have you been bothered by any of the following problems? (See health care provider item #6 above) 12.a. None : Over the PAST MONTH, what major life stressors, if any, have you experienced that are a cause of significant concern or make it difficult for you to do your work, take care of things at home, or get along with other people? 13. No : In the PAST YEAR, did you receive care for any mental health condition or concern such as, but not limited to post traumatic stress disorder (PTSD), depression, anxiety disorder, alcohol abuse or substance abuse? 14. None : What prescription or over-the counter medications (including herbals/supplements) for sleep, pain, combat stress, or a mental health problem are you CURRENTLY taking? 15.a. Monthly : How often do you have a drink containing alcohol? 15.b. 1 or 2 : How many drinks containing alcohol do you have on a typical day when you are drinking? 15.c. Less than monthly : How often do you have six or more drinks on one occasion? 16. Have you ever had any experience that was so frightening, horrible, or upsetting that in the PAST MONTH, you: 16.a. No : Have had nightmares about it or thought about it when you did not want to? 16.b. No : Tried hard not to think about it or went out of your way to avoid situations that remind you of it? 16.c. No : Were constantly on guard, watchful or easily startled? 16.d. No : [place] numb or detached from others, activities, or your surroundings 16.e. No : Milton guilt or unable to stop blaming yourself or others for the event(s) or any problems the event(s) may have caused? 17. Over the LAST 2 WEEKS, how often have you been bothered by the following problems? 17.a. Not at all : Little interest or pleasure in doing things 17.b. Not at all : Feeling down, depressed, or hopeless 18. No : Are you worried about your health because you believe you were exposed to something in the environment while deployed? 19.a. Not Sure : During this deployment were you based or stationed at a location where an open burn pit was used? 19.b. Not Sure : During this deployment were you exposed to toxic airborne chemicals or other air-borne contaminants? 19.c. No : For Service members, are you enrolled in the Airborne Hazards and Open Burn Pit Registry? 19.d. Wish to Enroll : For Service members, federal law requires eligible members to enroll in the Airborne Hazards and Open Burn Pit Registry or opt-out. If eligible, choose one: 20. No : Do you think you were exposed to any chemical, biological, or radiological warfare agents during this deployment? 21. No : Were you in a vehicle hit by a depleted uranium (DU) round; inside a destroyed vehicle that contained DU; or closely inspect such a vehicle? 22. No : Were you told to take medicines to prevent malaria? 23. No : Were you bitten or scratched by an animal during your deployment? 24. Yes : Would you like to schedule an appointment with a health care provider to discuss any health concern(s)? 25. No : Are you interested in receiving information or assistance for a stress, emotional or alcohol concern? 26. No : Are you interested in receiving assistance for a family or relationship concern? 27. No : Would you like to schedule a visit with a spool carrier, mental health care provider, or a community support counselor? Extracted from:Title: DHA1 Author: GABRIELLE MADERA Date: 12/01/23 PRE-DEPLOYMENT HEALTH ASSESSMENT ([id number] AUG 2015) Last Name: AASHISH First Name: MIYA [employer] Security Number: [id number] Date of : Sex: Male Service Branch: [employer] Component: [employer] Pay Grade: E6 Estimated date of upcoming deployment: Country: [place] Number of previous deployments: 1 Medical assessment/disposition: Deployable Medical assessment/disposition comments: Summary of provider's identified concerns needing referral: None identified Provider's Name: GONZALO VELÁZQUEZLAURA Date: 1. Address concerns identified on deployer questions 1 through 8. Self health rating: N/A Deployer's response: N/A Provider's comments: MEB or PEB: Deployer's response: N/A Provider's comments: Medical, dental or mental health concern: N/A Deployer's response: N/A Provider's comments: Head Injury: N/A Deployer's response: N/A Provider's comments: Medications: N/A Deployer's response: N/A Provider's comments: History of mental health care: N/A Deployer's response: N/A Provider's comments: 2. Member marked that they were not bothered by noises in head or ears or trouble hearing. 3. Deployer's AUDIT-C screening score was 5. Number of drinks per week: 2 Maximum number of drinks per occasion: 2 Referral is not indicated because there is no significant impairment. 4. Deployer did not luis yes on two or more of questions 11a through 11d. 5. Deployer did not luis More than half the days or nearly every day on question 12a or 12b. 6. Deployer marked that they did not have a concern or a difficulty with a major life stressor. 7. Deployer has not been bothered by thoughts that they would be better off or of hurting themself in some way. 8. Deployer states that they have not had thoughts or concerns over the past month that they might hurt or lose control with someone. 9. Medical history review completed. a. Significant findings related to ability to deploy: b. There is no evidence of deployment limiting conditions or medications. 16. Supplemental services recommended/information provided: 1. Overall how would you rate your health during the PAST MONTH? : Good 2. Are you CURRENTLY on a profile, limited duty, waiting on a MOS/Medical Retention Board (MMRB) decision, or being referred to a medical evaluation board (MEB) or physical evaluation board (PEB)? : No 3. How often do you smoke tobacco (for example cigarettes, cigars, pipe or hookah)? : Not at all 4. What problems, questions or concerns do you have about your medical, dental, or mental health? : No 6. In the PAST YEAR did you receive care for a head injury? : No 7. What prescription or over-the counter medications (including herbals/supplements) for sleep, pain, combat stress, or mental health conditions or concerns are you CURRENTLY taking? : None 8. During the PAST MONTH, how much have you been bothered by any of the following problems? : No 9. During the PAST MONTH, how much have you been bothered by any of the following problems? 9. a. Noises in your head or ears (such as ringing, buzzing, crickets, humming, tone, etc.) Not bothered at all 9. b. Trouble hearing Not bothered at all 10. a. How often do you have a drink containing alcohol? 2-4 times a month 10. b. How many drinks containing alcohol do you have on a typical day when you are drinking? 3 or 4 10. c. How often do you have six or more drinks on one occasion? Monthly 11. Have you ever had any experience that was so frightening, horrible, or upsetting that in the PAST MONTH, you: 11. a. Have had nightmares about it or thought about it when you did not want to? No 11. b. Tried hard not to think about it or went out of your way to avoid situations that remind you of it? No 11. c. Were constantly on guard, watchful or easily startled? No 11. d. Milton numb or detached from others, activities, or your surroundings No 12. Over the LAST 2 WEEKS, how often have you been bothered by the following problems? 12. a. Little interest or pleasure in doing things Not at all 12. b. Feeling down, depressed, or hopeless Not at all 13. a. Over the PAST MONTH, what major life stressors have you experienced that are a cause of significant concern or make it difficult for you to do your work, take care of things at home, or get along with other people (for example, serious conflicts with others, relationship problems, or a legal, disciplinary or financial problem)? : None Future Appointments Appointment Date: 02/24/2025 10:30:00 AM Scheduled Provider: JEANA PERALES DMD, Dentistry Location: [address] [place] [address] Appointment Type: Dental Visit 02/19/[address] [place] [address] Functional Status Combined list of recent functional and cognitive assessments recorded at [employer] (VA).VA Functional Barren Measurement (FIM) Scale: 1 = Total Assistance (Subject = 0% +), 2 = Maximal Assistance (Subject = 25% +), 3 = Moderate Assistance (Subject = 50% +), 4 = Minimal Assistance (Subject = 75% +), 5 = Supervision, 6 = Modified Barren (Device), 7 = Complete Barren (Timely, Safely). Assessment Date/Time Source Assessment Type Assessment Skill Assessment Score Assessment Details No data available for this section
== END 2025-02-19 11:46 | disposition home or self-care (01) ==
LOC: HO.HMCH 11:17
PROVIDERS: PCP Physician Assistant; Visit Provider Physician Assistant
DX: M25.561 Pain in right knee (principal); E66.812 Obesity, class 2; Z68.36 Body mass index [BMI] 36.0-36.9, adult; Z01.818 Encounter for other preprocedural examination; Z13.1 Encounter for screening for diabetes mellitus; H81.13 Benign paroxysmal vertigo, bilateral; M25.562 Pain in left knee; G89.29 Other chronic pain; M54.50 Low back pain, unspecified

== ENCOUNTER → 2025-02-19 11:17 | Outpatient (BNVA) | payer OTHER, SELFPAY | PROVIDERS: PCP Physician Assistant; Visit Provider Physician Assistant | DX: Z01.818 Encounter for other preprocedural examination (principal); E66.812 Obesity, class 2; J45.909 Unspecified asthma, uncomplicated; M54.50 Low back pain, unspecified; H81.10 Benign paroxysmal vertigo, unspecified ear; M25.561 Pain in right knee; M25.562 Pain in left knee; G89.29 Other chronic pain; Z68.36 Body mass index [BMI] 36.0-36.9, adult | CPT/HCPCS: 96127; 99212 ==

== ENCOUNTER 2025-06-21 09:48 | Outpatient (AMB) | payer OTHER, SELFPAY ==
--- NOTE | 2025-06-21 09:54 | MHC.PC.OV ---
Vital Signs 06/21/25 09:55 Height 6 ft Weight 264 lb 8 oz BMI 35.9 BP 128/66 Blood Pressure Location Lt brachial Position Sitting Pulse 73 Pulse Source Pulse Oximeter Temp 97.8 F Temp Source Temporal Artery Scan Pulse Oximetry (%) 97 Oxygen Delivery Method Room Air Intake Visit Reasons: Follow up Station Chief Required: No Accompanied by: Self / Same As Patient Allergies No Known Allergies (No Known Allergies*) Allergy (Verified 06/21/25 10:09) Medication List - Last Reconciled 06/21/25 by Marko Balbuena PA-C albuterol sulfate 90 mcg/actuation 2 puffs inhalation Q6H PRN Tobacco use date assessed: 06/21/25 Dental Screening Dental Screen Date: 06/21/25 Did you have a dental visit in the last 12 months?: No Did you have a dental problem in the last 6 months where you did not have access to dental care?: No Was dental information given to patient?: No HPI Follow up HPI Details Patient is a 34-year-old male here today for A follow-up visit. Patient has a past medical history of obesity . The patient reports right shoulder pain, which he attributes to wear and tear from activities such as baseball, softball, and work involving heavy lifting. The pain is not constant but is exacerbated by certain movements, such as throwing a softball, which causes a popping sensation and occasional numbness. He has not had any imaging done for the shoulder yet. The patient also experiences bilateral knee pain, which he describes as a result of wear and tear, possibly exacerbated by his weight and bow-legged walking pattern. The pain is more pronounced during physical activities, such as running, and tends to subside after warming up. He has not reported any specific knee injuries. Lower back pain is another concern, which the patient believes is related to his knee issues and weight. He has had imaging ordered for his lumbar spine but has not yet completed it. The patient reports episodes of vertigo but feels generally well otherwise. He has lost a few pounds since his last visit and maintains muscle mass, which he believes is beneficial for his joint health. [facility] Social History Housing: House Patient Tobacco Use Status: Never used Tobacco e-Cigarette/Vaping Use: Never Used service: No Current occupational status: employed Cognitive needs: No Hearing needs: No Vision needs: No Questionnaire PHQ-9 Over the last 2 weeks, how often have you been bothered by any of the following problems? 1. Little interest or pleasure in doing things: not at all 2. Feeling down, depressed, or hopeless: not at all 3. Trouble falling or staying asleep, or sleeping too much: several days 4. Feeling tired or having little energy: several days 5. Poor appetite or overeating: not at all 6. Feeling bad about yourself - or that you are a failure or have let yourself or your family down: not at all 7. Trouble concentrating on things, such as reading the newspaper or watching television: not at all 8. Moving or speaking so slowly that other people could have noticed. Or the opposite - being so fidgety or restless that you have been moving around a lot more than usual: not at all 9. Thoughts that you would be better off or of hurting yourself in some way: not at all Total score: 2 31155 - PHQ-9 Billing: Yes Source: Developed by Drs. Brandin Snow, Claudia Quiroz, Gerardo Mcdonadl and colleagues, with an educational maxime from [employer]. Thrive Questionnaire Date Thrive assessed: 06/21/25 I am a: Patient What is your living situation today?: I have a steady place to live Within the past 12 months, did the food you bought not last and you didn't have the money to get more?: Never true Within the past 12 months, did you worry whether your food would run out before you got money to buy more?: Never true Do you have trouble paying for medicines?: No Do you have trouble getting transportation to medical appointments?: No Do you have trouble paying your heating and electricity bill?: No Do you have trouble taking care of your child, family member or friend?: No Do you have trouble with day-to-day activities such as bathing, preparing meals, shopping, managing finances, etc.?: No Are you currently unemployed and looking for a job?: No Are you interested in more education?: No Please select the resources that you would like help with: None Currently or been in a relationship where the following occur: No concerns reported THRIVE Score: 0 AUDIT C Alcohol Use Questionnaire (AUDIT-C) 1. How often do you have a drink containing alcohol?: 2-4 times a month 2. How many drinks containing alcohol do you have on a typical day when you are drinking?: 5 or 6 3. How often do you have six or more drinks on one occasion?: Monthly Total Score: 6 TAWANNA-7 AMB Questionnaire TAWANNA-7 Date TAWANNA - 7 assessed: 06/21/25 Feeling nervous, anxious, or on edge: 1 = Several days Not being able to stop or control worryin = Several days Worrying too much about different things: 1 = Several days Trouble relaxin = Several days Being so restless that it is hard to sit still: 1 = Several days Becoming easily annoyed or irritable: 2 = More than half the days Feeling afraid as if something awful might happen: 0 = Not at all Total TAWANNA-7 score (0-4 normal; 5-9 mild; 10-14 moderate; 15-21 severe): 7 Source: Developed by Drs. Brandin Snow, Claudia Quiroz, Gerardo Mcdonald and colleagues, with an educational amxime from [employer]. TAWANNA-7 Assessment Billing TAWANNA-7 Assessment Tool: TAWANNA-7 Assessment 00176 Review of Systems Const Denies headache(s) Eyes Denies loss of vision ENT Denies vertigo, Denies dizziness, Denies headache(s) and Denies sore throat Card Denies chest pain, Denies leg edema and Denies lightheadedness Resp Denies cough, Denies hemoptysis and Denies wheezing GI Denies abdominal pain, Denies melena, Denies constipation, Denies diarrhea and Denies vomiting Denies dysuria, Denies urinary frequency and Denies urinary urgency Musc Denies arthralgias, Denies joint swelling, Denies numbness and Denies tingling Neuro Denies Abnormal speech present, Denies behavioral changes, Denies vertigo, Denies dizziness, Denies headache(s), Denies loss of vision, Denies memory loss, Denies numbness and Denies tingling Psych Denies anxiety, Denies behavioral changes, Denies depression, Denies memory loss and Denies panic attacks Calixto/Lymph Denies easy bleeding and Denies easy bruising Aller/Immun Denies wheezing Physical exam (Primary Care) Vital Signs: Last Vital Signs Temp 97.8 F 06/21/25 09:55 Pulse 73 06/21/25 09:55 BP 128/66 06/21/25 09:55 Pulse Ox 97 06/21/25 09:55 Oxygen Delivery Method Room Air 06/21/25 09:55 BMI result Body Mass Index 35.9 Tobacco/Smoking Status: Tobacco use Status Tobacco use date assessed 06/21/25 06/21/25 09:56 Patient Tobacco Use Status Never used Tobacco 06/21/25 09:56 e-Cigarette/Vaping Use Never Used 06/21/25 09:56 PHQ-9: PHQ-9 Score PHQ-9: Total score 2 06/21/25 10:09 Thrive Assessment: Date of Thrive Assessment Date Thrive assessed 06/21/25 06/21/25 09:56 Currently or been in a relationship where the following occur: No concerns reported Const General: healthy appearing, no acute distress, alert and awake Nutritional Appearance: well nourished Orientation/consciousness: oriented to person, oriented to place and oriented to time HENMT Ears: TM's normal bilaterally General nose exam: Normal nasal mucous membranes and turbinates present Eyes Conjunctivae: conjunctivae normal Sclerae: sclerae normal Pupils: Equal, round and reactive pupils present Neck Neck: Yes no lymphadenopathy and Yes no JVD Thyroid: Thyroid normal Carotids: no bruits Resp Effort & Inspection: normal respiratory effort and not tachypneic Auscultation: no crackles, no rales, no rhonchi and no wheezes Cardio Rate: regular rate Rhythm: regular rhythm Heart sounds: no murmurs and normal S1 and S2 GI Palpation (GI): Soft to palpation, nontender, no hepatomegaly and no splenomegaly Auscultation: normal bowel sounds Skin General skin exam: no rashes or lesions noted and dry skin Neuro General: oriented to person, oriented to place and oriented to time Cranial nerves: Yes Equal, round and reactive pupils present Speech: No Abnormal speech present Gait exam (Neuro): Normal gait present Motor exam (neuro): no tremor noted Extrem Other: RIGHT SHOULDER: SOME LIMITATIONS TO HIS RANGE OF MOTION, POSITIVE PAIN WITH EMPTY CAN TEST OVER THE POSTERIOR SHOULDER Right upper extremity: full ROM Left upper extremity: full ROM Right lower extremity: full ROM; no edema Left lower extremity: full ROM; no edema Knee images:  1. KNEE PAINS LOCATED OVER THE LATERAL ASPECT NEW JOINT SPACE ? LCL Psych Mental Status: mental status grossly normal Speech and movement: Normal speech and movement present Affect: normal affect Attitude: cooperative Thought process: Normal thought process present Coding Level of Care Code Est Pt Level 4 (54700) Diagnoses Chronic right shoulder pain M25.511; G89.29 Chronicity: chronic Chronic pain of both knees M25.561; M25.562; G89.29 Chronicity: chronic Lumbar spine pain M54.50 Class 2 obesity E66.812 Additional Codes TAWANNA-7 Assessment Billing - TAWANNA-7 Assessment Tool: TAWANNA-7 Assessment 66718 ([id number]) PHQ-9 - 42184 - PHQ-9 Billing: Yes ([id number]) Assessment & Plan Assessment & Plan (1) Right shoulder pain: Code(s): M25.511 - Pain in right shoulder Category: Medical Qualifiers: Chronicity: chronic Qualified Code(s): M25.511 - Pain in right shoulder; G89.29 - Other chronic pain Plan: The patient will begin physical therapy focusing on the right shoulder to improve range of motion and reduce pain. If physical therapy is not effective, further imaging such as an MRI may be considered. The patient was advised on the use of [id number] anti-inflammatory medications as needed. (2) Bilateral knee pain: Code(s): M25.561 - Pain in right knee; M25.562 - Pain in left knee Category: Medical Qualifiers: Chronicity: chronic Qualified Code(s): M25.561 - Pain in right knee; M25.562 - Pain in left knee; G89.29 - Other chronic pain Plan: Patient's knee pain most consistent with a tendinitis of the lateral aspect of both knees. He will continue doing conservative management in trying to lose weight. (3) Lumbar spine pain: Code(s): M54.50 - Low back pain, unspecified Category: Medical Plan: As per HPI patient continues to have lumbar spine. He is willing to get x-ray of the lumbar spine to evaluate. We did discuss the possibility of starting physical therapy. (4) Class 2 obesity: Code(s): E66.812 - Obesity, class 2 Category: Medical Plan: Patient does understand his BMI is over 35 and will work on being more physically active and adapting to better eating habits to reduce his weight Orders: Orders XR shoulder RT min 2V Today G89.29 - Other chronic pain, M25.511 - Pain in right shoulder PT Evaluation and Treatment Today G89.29 - Other chronic pain, M25.511 - Pain in right shoulder CADE Reflex Titer and Pattern Today G89.29 - Other chronic pain, M25.561 - Pain in right knee, M25.562 - Pain in left knee XR knee LT 3V Today G89.29 - Other chronic pain, M25.561 - Pain in right knee, M25.562 - Pain in left knee XR knee RT 3V Today G89.29 - Other chronic pain, M25.561 - Pain in right knee, M25.562 - Pain in left knee Rheumatoid Factor Today G89.29 - Other chronic pain, M25.561 - Pain in right knee, M25.562 - Pain in left knee Cyclic Citrullinated Peptide Today G89.29 - Other chronic pain, M25.561 - Pain in right knee, M25.562 - Pain in left knee
[2025-06-21 09:55] VITALS: BP 128/66; PULSE 73; TEMP 36.6; O2SAT 97; BMI 35.9
--- OUTSIDE RECORDS SUMMARY | 2025-06-21 10:19 | XMS_ITS | Continuity of Care Document ---
Author Name [facility] Organization [facility] Care Team Providers Care Manager Analytical Name Role Phone [facility] Unavailable Unavailable Problems Combined list of problems from Department of Defense and Veterans Affairs facilities. It does not include entries that were removed or entered in error. Problem Status Onset Date Problem Type Date of Resolution Comments Source Vision disorder Active 10/18/2024 Diagnosis 031 0C-AF-C- [facility] Vertigo Active 10/18/2024 Diagnosis 0310C-AF-C- [facility] Right shoulder pain Active 10/18/2024 Diagnosis 0310C-AF-C- [facility] Pain of bilateral knee joints Active 10/18/2024 Diagnosis 0310C-AF-C- [facility] Low back pain, unspecified Inactive 03/04/2024 Condition DoD Encounter for other administrative examinations Inactive 12/04/2020 Condition DoD Allergies, Adverse Reactions, Alerts Combined list of allergies from Department of Defense and Veterans Affairs facilities. It does not include entries that were removed or entered in error. Substance Category Reaction Severity Reaction type Status Date Reported Comments Source No Known Allergies Drug allergy (disorder) active 02/22/2015 [place] [address] Immunizations Combined list of available immunizations from the Department of Defense and Veterans Affairs facilities. Immunization Series Date Given Administered By Site Reaction Lot Number CVX Code Drug Sample Hand Status Comments Source influenza, injectable, quadrivalent- pf 2021 [id number] GlaxoSmithKli ne complet ed influenza , injectabl e, quadrival ent-pf 09/06/22 Given Ambulat ory Pharmac y influenza, seasonal, injectable 2020 [id number] 141 Seqirus complet ed influenza , seasonal, injectabl e 08/11/21 Given Ambulat ory Pharmac y COVID Vaccine Moderna 2020 [id number] 207 complet ed COVID Vaccine Moderna 04/27/21 Given Ambulat ory Pharmac y COVID Vaccine Moderna 2020 [id number] 207 complet ed COVID Vaccine Moderna 02/14/21 Given Ambulat ory Pharmac y anthrax vaccine 2019 [id number] 24 Emergent Biosolutions complet ed anthrax vaccine 11/08/20 Given Ambulat ory Pharmac y influenza, injectable, quadrivalent 2019 [id number] 158 Seqirus complet ed influenza , injectabl e, quadrival ent 09/30/20 Given Ambulat ory Pharmac y anthrax vaccine 2019 [id number] 24 Emergent Biosolutions complet ed anthrax vaccine 06/05/20 Given Ambulat ory Pharmac y typhoid Vi capsular polysaccharid e vac 2019 [id number] 101 sanofi pasteur complet ed typhoid Vi capsular polysacch aride vac 04/12/20 Given Ambulat ory Pharmac y anthrax vaccine 2019 [id number] 24 Emergent Biosolutions complet ed anthrax vaccine 04/12/20 Given Ambulat ory Pharmac y influenza, injectable, quadrivalent- pf 2018 [id number] 150 Seqirus complet ed influenza , injectabl e, quadrival ent-pf 10/28/19 Given Ambulat ory Pharmac y influenza, injectable, quadrivalent- pf 2017 [id number] 150 Seqirus complet ed influenza , injectabl e, quadrival ent-pf 09/25/18 Given Ambulat ory Pharmac y Influenza, inj, MDCK, quadrivalent- pf 2016 [id number] 171 Seqirus complet ed Influenza , inj, MDCK, quadrival ent-pf 10/24/17 Given Ambulat ory Pharmac y influenza, seasonal, injectable-pf 2015 [id number] 140 Seqirus complet ed influenza , seasonal, injectabl e-pf 09/05/16 Given Ambulat ory Pharmac y hepatitis A-hepatitis B vaccine 2015 [id number]` 104 GlaxoSmithKli ne complet ed hepatitis A-hepatit is B vaccine 12/28/15 Given Ambulat ory Pharmac y hepatitis A-hepatitis B vaccine 2015 [id number]` 104 GlaxoSmithKli ne complet ed hepatitis A-hepatit is B vaccine 12/28/15 Given Ambulat ory Pharmac y influenza, seasonal, injectable-pf 2014 [id number] 140 CSL Behring complet ed influenza , [...] Pharmac y tuberculin purified protein derivative 2014 [id number] 96 sanofi pasteur complet ed tuberculi n purified protein derivativ e 02/15/15 Given Ambulat ory Pharmac y adenovirus vaccine, live 2014 [id number] 143 Teva Pharmaceutica ls complet ed adenoviru s vaccine, live 02/15/15 Given Ambulat ory Pharmac y poliovirus vaccine, inactivated 2014 [id number] 10 sanofi pasteur complet ed polioviru s vaccine, inactivat ed 02/15/15 Given Ambulat ory Pharmac y meningococcal A,C,Y,W-135 (MCV4P) 2014 [id number] 114 sanofi pasteur complet ed meningoco ccal [...] Prevention' s HIV diagnostic algorithm. Refer to DocDoc Lab Guide for additional information : https://[facility]/ kj/kx5/EPIL ab/Pages/la b_guide.asp x Testing performed by [employer]aza[employer] solano. 5600A-U [facility] EPILAB Miscellan eous Sendouts Repository Sample Received ( 4 8:55 AM) 09/06 N 5600A-U [facility] Infectiou s Disease [...] Prevention' s HIV diagnostic algorithm. Refer to DocDoc Lab Guide for additional information : https://Threadflip [employer].[facility]/ kj/kx5/EPIL ab/Pages/la b_guide.asp x Testing performed by [employer]ZettaCorecen ce. 5600A-U [facility] EP[facility] Miscellan eous Sendouts [...] Prevention' s HIV diagnostic algorithm. Refer to [facility] Lab Guide for additional information : https://ZenSuite. [employer].[facility]/ kj/kx5/EPIL ab/Pages/la b_guide.asp x Testing performed by Electrochem iluminRingTucen ce. 5600A-U [facility] BubblyLAB Logoworkscellan eous Sendouts Repository Sample Received (06/10/23 1:22 PM) 06/10 N 5600A-U [place] [employer] Vital Signs Combined list of inpatient and outpatient Vital Signs from Department of Defense and Veterans Affairs, ranging from 12 months to all on record, depending upon the facility. Vital Sign Value Date Comments Source Respiratory Rate 16 br/min 10/18/2024 18:14:00 [facility] Peripheral Pulse Rate 62 bpm 10/18/2024 18:14:00 4795L-VA-C-[facility] Blood Pressure Manual Automatic 10/18/2024 18:14:00 5645U-MB-X-[facility] Mean Arterial Pressure, Calc 100 mm[Hg] 10/18/2024 18:14:00 7930R-KG-F-[facility] BP Site Left arm 10/18/2024 18:14:00 6280Z-RF-Z-[facility] Temperature Oral 36.0 Lilly 10/18/2024 18:14:00 0709D-OM-Z-[facility] Systolic Blood Pressure 130 mm[Hg] 10/18/20 24 18:14:00 7168B-RZ-N-[facility] Diastolic Blood Pressure 85 mm[Hg] 024 18:14:00 6258V-GR-K-[facility] Encounters Combined list of: 1) Encounters from Department of Veterans Affairs facilities going backup to the last 18 months, not all VA inpatient encounters are included; 2) Encounters from the Department of Defense facilities going backup to 280 months. Location Location Details Encounter Type Encounter Number Reason For Visit Attending Provider ADM Date DC Date Status Disposition [place] [address](Opt ometry Clinic [facility]) OUTPATIENT [id number] TAVON ROSE 02/19 Released w/o Limitations [facility] [place] [address](O ptometr y Clinic [facility]) [place] [address]([facility]) OUTPATIENT [id number] Notes Entered by: MAYO MONCADA 22 Feb 2015 1309 ------- ------- ------- ------- -- Strep Prophyl axis COLETTE MONCADA 02/22 Released w/o Limitations [facility] [place] [address]([facility] d) Theater Facility OUTPATIENT [id number] Theater Provider 12/04 Released w/o Limitations [facility] Facility OUTPATIENT [id number] Theater Provider 03/04 Sick at Home/Quarter s Theater Facilit [facility] Theater Facility OUTPATIENT [id number] Theater Provider 03/14 Released w/o Limitations Theater Facilit y 8344R-439 [facility]DS Outpatient [id number] CHRISTIAN MCCARTHY 09/13 Discharge Disposition: Home or Self Care 8344R-4 39 AMDS 0310C-AF- C-[facility] Not Rendered [id number] SAVI [facility] 10/05 Discharge Disposition: Home or Self Care 0310C-A F-C-[facility] 0310C-AF- C-[facility] [id number] Dizzine ss and giddine ss,Pain in right shoulde r,Pain in unspeci fied knee,Un specifi ed visual disturb ance SAVI [facility] 10/18 Discharge Disposition: Home or Self Care 0310C-A F-C-[facility] 8344R-439 AMDS Dental [id number] DUNG MYDOAN 02/24 Discharge Disposition: Home or Self Care 8344R-4 39 AMDS Procedures Combined list of: 1) Procedures from Department of Veterans Affairs facilities going back up to thelast 18 months, not all VA non-surgical procedures are included; 2) All procedures from the Department of Defense facilities. Procedure Procedure Type Code Date Perfomer Comments Sourc e No data available for this section Ambulato ry Pharmacy Physical Therapy: ___ Se ion Segments, 15 Minutes Each Physical Therapy: ___ Session Segments, 15 Minutes Each [id number] 03/14/20 24 Theater Provider DoD Osteopathic Manip Treatment (OMT) 1-2 Body Regions Involved Osteopathic Manip Treatment (OMT) 1-2 Body Regions Involved 44327 03/14/20 24 Theater Provider Nicholas Rubio Supervised Injection Intramuscular Antibiotic Supervised Injection Intramuscular Antibiotic 63997 02/23/20 15 COLETTE MONCADA Screening Test Of Visual Acuity, Quantitative, Bilateral Screening Test Of Visual Acuity, Quantitative, Bilateral 13101 02/20/20 15 JAMEE GARCIA [facility] Fitting Monofocals (Not For Aphakia) [facility] Fitting Monofocals (Not For Aphakia) 99436 02/20/20 15 JAMEE GARCIA. [facility] Health And Behavior Intervention, Each 15 Minutes Individual Health And Behavior Intervention, Each 15 Minutes Individual 26237 02/19/20 15 ALEXANDRA POLLARD [facility] Social History Combined list of available smoking, tobacco, and other social history from Department of Defense and Veterans Affairs facilities. Social History Type Response Date Comment Sourc e Sex Representation Male (finding) 12/03/2022 Un known Organization Tobacco Cigarette use: Never-cigarette user. Other Tobacco use: Never-other tobacco user (not cigarettes). Ambulatory Pharmacy Sexual Orientation Ambula tory Pharmacy Gender identity Ambulator y Pharmacy This section is an empty social history section. [facility] Assessment and Plan Combined list of future care activities from Department of Defense and Veterans Affairs facilities (e.g., assessment and plan notes, appointments, orders, and referrals). Additional future care activities may be listed in the Plan of Care section. Result Assessment and Plan Date Source Assessment and Plan Extracted from:Title : DHA3 Author: KT HAMILTON Date: 01/20/25 POST DEPLOYMENT HEALTH RE-ASSESSMENT ([id number] OCT 2023) Last Name: AASHISH First Name: MIYA [facility] ID: [id number] Date of : Sex: Male Service Branch: [employer] Component: Reserves Pay Grade: E7 Date departed theater: Country: [place] Summary of provider's identified concerns needing referral: Recommended referral(s): None. Referral Time Comments: Member in good health and has been adjusting very well. He states that the issues that he reported (back pain, dizziness) are improving very well. Jasmin has not had an event of dizziness for the last 4+ months. He is asked to pay very close attention and immediately see a provider if any further incidents occur. Provider's Name: Dgzac Beck [facility] [[email or web address] Date: 1. Address concerns identified on deployer questions 1 and 2. Self health rating: N/A Deployer's response: N/A Provider's comments: Change in health post-deployment: N/A Deployer's response: N/A Provider's comments: 2. Address wounds, injuries, assaults, etc., occurring during deployment as reported on deployer question 3. Deployer did not indicate concern. 3. Deployment experiences as reported in deployer question 4. Consider in overall assessment; ask follow-up questions as indicated. Danger of being killed: N/A Provider's comments: Encountered bodies or saw people killed or wounded: N/A Provider's comments: In direct combat and discharged weapon: N/A Provider's comments: 4. Address concerns identified on deployer questions 5 through 7. Health care visits since return: N/A Deployer's response: Provider's comments: None Hospitalized since return: N/A Deployer's response: Provider's comments: None Physical limitations/problems: N/A Deployer's response: Provider's comments: None 5. Post-deployment general symptoms/health concerns. List of symptoms reported as Bothered a Lot on Deployer Questions 8a. through 8ee.: None List of symptoms reported as Bothered a Little on Deployer Questions 8a. through 8ee.: Back pain,Pain in the arms, legs, or joints (knees, hips, etc.),Dizziness Physical symptom (PHQ-15) severity score for Deployer Questions 8a. through 8ee.: Minimal a. Deployer does not have evidence of high generalized post-deployment physical symptoms. 6. Deployer marked that they did not have a concern or a difficulty with a major life stressor. 7. Address concerns identified on deployer questions 10 and 11. History of mental health care: N/A Deployer's response: Provider's comments: None Medications: N/A Deployer's response: Provider's comments: None 8. Deployer's AUDIT-C screening score was 4. (nothing required) 9. Deployer did not luis yes on three or more of questions 13a through 13e. 10. Deployer did not luis 'More than half the days' or 'Nearly every day' on question 14a or 14b. 11. Deployer did not indicate a worry or concern about a possible environmental/work exposure. 12. Deployer indicated they were NOT bitten or scratched during this deployment. 13.a. Deployer has not wished they were or wished they could go to sleep and not wake up. 13.b. Deployer has not actually had thoughts of killing themself. 13.f.1. Deployer has not ever done anything, started to do anything, or prepared to do anything to end their life. 13.g. Further risk assessment: 13.h. Deployer does not pose a current risk for harm to self. 14. Deployer states that they have not had thoughts or concerns over the past month that they might hurt or lose control with someone. 19. Address requests as reported on deployer questions 18 through 21: No reported requests. 20. Supplemental services recommended/information provided: No Supplemental Services Required 1. Good : Overall how would you rate your health during the PAST MONTH? 2. About the same as before I deployed : Compared to before your most recent deployment, how would you rate your health in general now? 3. No : Were you wounded, injured, assaulted or otherwise hurt during your deployment? 4. During your deployment: 4. a. No : Did you ever feel like you were in great danger of being killed? 4. b. No : Did you encounter bodies or see people killed or wounded during this deployment? 4. c. No : Did you engage in direct combat where you discharged a weapon? 5. 1 visit : Since you returned from deployment, how many times have you gone to a health care provider for a medical, dental, or mental health problem/concern? 6. No : Since you returned from deployment, have you been hospitalized? 7. Not difficult at all : During the PAST MONTH, how difficult have physical health problems (illness or injury) made it for you to do your work or other regular daily activities? 8. During the PAST MONTH, how much have you been bothered by any of the following problems? (See health care provider item #5 above) 9. a. None : Over the PAST MONTH, what major life stressors have you experienced that are a cause of significant concern or make it difficult for you to do your work, take care of things at home, or get along with other people? 10. No : In the PAST YEAR did you receive care for any mental health condition or concern such as, but not limited to post traumatic stress disorder (PTSD), depression, anxiety disorder, alcohol abuse or substance abuse? 11. None : What prescription or over-the counter medications (including herbals/supplements) for sleep, pain, combat stress, or a mental health problem are you CURRENTLY taking? 12. a. 2-4 times a month : How often do you have a drink containing alcohol? 12. b. 3 or 4 : How many drinks containing alcohol do you have on a typical day when you are drinking? 12. c. Less than monthly : How often do you have six or more drinks on one occasion? 13. Have you ever had any experience that was so frightening, horrible, or upsetting that in the PAST MONTH, you: 13. a. No : Have had nightmares about it or thought about it when you did not want to? 13. b. No : Tried hard not to think about it or went out of your way to avoid situations that remind you of it? 13. c. No : Were constantly on guard, watchful or easily startled? 13. d. No : Alton numb or detached from others, activities, or your surroundings 13. e. No : Alton guilt or unable to stop blaming yourself or others for the event(s) or any problems the event(s) may have caused? 14. Over the LAST 2 WEEKS, how often have you been bothered by the following problems? 14. a. Not at all : Little interest or pleasure in doing things 14. b. Not at all : Feeling down, depressed, or hopeless 15. No : Are you worried about your health because you believe you were exposed to something in the environment while deployed? 16.a. No : During this deployment were you based or stationed at a location where an open burn pit was used? 16.b. No : During this deployment were you exposed to toxic airborne chemicals or other air-borne contaminants? 17. No : Were you bitten or scratched by an animal during your deployment? 18. No : Would you like to schedule an appointment with a health care provider to discuss any health concern(s)? 19. No : Are you interested in receiving information or assistance for a stress, emotional or alcohol concern? 20. No : Are you interested in receiving assistance for a family or relationship concern? 21. No : Would you like to schedule a visit with a medical staff director, mental health care provider, or a community support counselor? Extracted from:Title: Office Clinic Note - Vertigo, R Shoulder, B/L Knee Author: SAVI BURGESS MD Date: 10/18/24 1. V ertigo P atient with a history of vertigo episodically now x2 episodes lasting about 1-2 weeks per episode with reproducible symptoms during Frandy-Hallpike maneuver in clinic. Patient otherwise asympomatic at t his time. Jo-Ann maneuver not performed due to absence of symptoms at this time. DDx a lso includes vestibular neuritis, labyrinthitis. No coexisting hearing changes or problems. No other neurologic signs or symptoms. - Discussed repositioning maneuver which patient will review and perform if episode returns - Return precautions discussed - Repeat meclizine if helpful and if repeats 2. V ision disorder Patient instructed by optometry that he has symptoms of early cataracts and was recomended o pthalmology. Not fully discussed today. - Referral optho places - Follow-up based on their recommendations Ordered: Referral Request 2.0 - DoD 3. R ight shoulder pain P heriberto is a 3 1 Years y ear old Diamond mcnamara ith a history and exam as documented suggestive of s upraspinatus injury l ikely 2/2 to chronic degenerative changes associated with lifestyle (i.e. baseball, lifting weights). Plan: - Relative rest, ice, heat, activity modification - Home exercise program discussed Meds: - NSAIDs and Acetaminophen as needed and as ordered Imaging: -Radiographs: N ot indicated Referrals: -Physical Therapy: o rdered at this time Follow: up: i n 4-6 weeks if symptoms not improving with current plan Ordered: Referral Request 2.0 - DoD 4. P ain of bilateral knee joints P heriberto is a 5 1 Years y ear old Diamond mcnamara ith a history and exam as documented suggestive of p atellofemoral pain s yndrome . No antecedent f alls nor trauma. Plan: - Relative rest, ice, heat, activity modification - Home exercise program discussed - Mayra Kat Project discussed and included in after visit summary - I njections - not indicated Meds: - NSAIDs and Acetaminophen as needed and as ordered Imaging: -Radiographs: N ot indicated Referrals: -Physical Therapy: o rdered at this time Ordered: Referral Request 2.0 - DoD Readiness - No profiles/No DR/ No MR/ no FR Clinic return and ER precautions provided All questions answered/pt acknowledges understanding Please note that this document was dictated using UpTo Speak and I apologize for any aquaculture program director errors I have missed and therefore should be taken within appropriate clinical context. Patient seen and examined on day of encounter with all studies (including labs and radiology) reviewed as above. Note to patient reading this note: the Century Cares Act makes medical notes available to patient's in the interest of transparency. Be advised this is a medical document. It is intended primarily as kubl-wc-wqtf communication. It is written in medical imaging which may contain abbreviations or verbiage that are unfamiliar. It may appear as blunter or direct. This is because medical documents are intended to carry relevant information, facts is evident, and the clinical opinion of the physician only has formulated at the time of writing. I spent 60 minutes i n direct patient care of this patient, in addition to time spent in chart review and documentation. Savi Burgess Jr., MD [facility] edicine Physician [employer] [address], [place] [address] Extracted from:Title: PDMHA Author: KT HAMILTON Date: 09/07/24 POST-DEPLOYMENT MENTAL HEALTH ASSESSMENT Date: Last Name: AASHISH First Name: MIYA Nicholas ID Number: [id number] Date of : Sex: Male Service Branch: [employer] Component: Reserves Pay Grade: E6 Date departed theater: Country: [place] Summary of provider's identified concerns needing referral: Recommended referal(s): Referral Time Comments: SECTION II. MENTAL HEALTH ASSESSMENT (MHA) PROVIDER INFORMATION 1. Last Name: JEWEL 2. First Name: CHRISTIAN 3. Middle Name: 4. Service Branch: [employer] 5. 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 EMAIL: [email or web address] 8. Facility: [address] 9. Unit: [address] 10. Address: [address] [facility] 11. State: [facility]. Zip Code: [address] 13. Phone: [phone] Date: 1. Deployer marked that they did [...] easily startled? 5. d. [ No ] Alton numb or detached from others, activities, or your surroundings? 5. e. [ No ] Alton guilt or unable to stop blaming yourself [...] like to schedule a visit with a medical staff director or a community support counselor? Extracted from:Title: PHA 2023 Author: ALFONSOTK Diamond Date: 09/06/24 ANNUAL PERIODIC HEALTH ASSESSMENT I. PRETZEL TWISTER INFORMATION AND DEMOGRAPHICS (SMI) 1. Last Name: KARANSARAYKalyani 2. First Name: MIYA 3. Middle Name: ELAINA 4. Assessment Date: 5. : 6. Age: 33 7. Sex: M 8. [employer] ID Number: [id number] 9. Service Branch: [employer] 10. 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 Unit Name: [address] 14. Duty Station/Location: [place] 15. UIC: [id number] 16. Is this your first Periodic Health Assessment (PHA)?: N 17. Are you enrolled in a secure messaging system with your health care provider?: 18. Current contact information: Preferred Method: Day Time Phone DSN: Day Time Phone: [phone] Night Time Phone: [phone] Email 1: [email or web address] Email 2: Address: [address] [place] [address] City: [place] State: [place] Zip Code: [address] 19. Point of contact who can always reach you: Name: Kierra Beatty Phone 1: [phone] Phone 2: EMAIL: [email or web address] Address: [address] [place] [address]: [place] State: [place] Zip Code: [address] II. DEPLOYMENT INFORMATION (DEP) 1. [ 1 [...] easily startled? 6. d. [ No ] Alton numb or detached from others, activities, or your surroundings? 6. e. [ Not answered ] Alton guilt or unable to stop blaming yourself [...] like to schedule a visit with a medical staff director, mental health care provider, or a community [...] 8. [ None ] What prescriptions or rofg-wgu-tzimznq medications are you CURRENTLY taking for health problems on a ROUTINE BASIS? 9. Which of the following products have you taken since your last PHA: Protein Supplements/Creatine: Every other day Performance Enhancers/Pre-Workout Products: Every other day Herbal or Botanical Supplements in pills, gels, and/or tablet form: Every other day Multi-Vitamins: Every other day Otisco-3 Supplements: Once a day 11. Think about [...] had a cholesterol check by a health clinical care manager within the PAST 5 YEARS? 13.a. In [...] discuss any health concerns? XI. SEPARATION AND LONGTERM 1. [ No ] Are you planning to separate or retire within the next year from Active Duty or Hardy Duty (activated for greater than 30 continuous days) OR do you intend to file a claim for disability compensation with the [employer]? PART B. RECORD REVIEW AND RECOMMENDATIONS I. RECORD REVIEWER INFORMATION 1. Last Name: CARMENZA 2. First Name: SAVI 3. Middle Name: 4. Service Branch: [employer] 5. 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 EMAIL: [email or web address] 8. Facility: [facility] 9. Unit: [facility] 10. Address: [facility] [address] 11. State: [place] 12. Zip Code: [address] 13. Phone: [phone] 14. Date Record Review: II. MEDICAL SCREENING 1. [ ] Date of restaurant hourly team member's most recent PHA 2. [ 6 feet 0 inches Date: ] restaurant hourly team member's most recently documented height 3. [ 250 pounds Date: ] restaurant hourly team member's most recently documented weight 4. [ 122/78 Date: ] restaurant hourly team member's most recently documented blood pressure reading 5. [ No ] Does the restaurant hourly team member have a history of abnormal blood pressure since their last PHA? 6. [ Yes ] Does the restaurant hourly team member have a laboratory test of sickle cell trait documented in their permanent medical record? 7. [ No Cholesterol Test Documented ] What is the date of the restaurant hourly team member's most recently documented cholesterol test? 9. [ No Active Medications Documented ] List of restaurant hourly team member's active medications listed in their permanent medical record 10. [ No ] Is there a discrepancy between the active medication record review and the restaurant hourly team member's self-reported list of medications? 11. [ No Outside Care Documented ] List documented significant care the restaurant hourly team member has received since their last PHA from a provider OUTSIDE the Health System 12. [ No ] Is there a discrepancy between the restaurant hourly team member's list of OUTSIDE care (from OT5), and the OUTSIDE care found in the record? 13. [ [id number] LBP [id number] LBP chronic [id number] dizziness/shaving wavier ] List documented significant care the restaurant hourly team member has received since their last PHA from a provider INSIDE the Health System 15. [ Not Answered ] Confirm that vaccine exemptions are listed in the medical record for each vaccine listed IV. FAMILY HISTORY AND LIFESTYLE 1. [ Yes ] Does the OY2062 reflect the restaurant hourly team member's reported family history? . DEPLOYMENT-RELATED HEALTH ASSESSMENTS 1. [ No ] Based on your check of records, does the restaurant hourly team member have any due or overdue deployment health assessments which need to be completed with this PHA? VII. INDIVIDUAL MEDICAL READINESS 1. [ No ] Does the restaurant hourly team member have an Assignment Limitation Code C? 3. [ Classification: 2 ] Most recently documented dental exam 4. [ No: Influenza, [place] ] Is the restaurant hourly team member current on all required immunizations in the immunization tracking system? 5. [ Yes ] Is the restaurant hourly team member current with Service-specific requirements for glasses and gas mask inserts? 6. Does the restaurant hourly team member have the following laboratory tests documented [...] need to be forwarded to the Health [facility] Man completing PART C: see SHPE Date Record Review Completed: PART C. HEALTH CARE PROVIDER I. MENTAL HEALTH ASSESSMENT (MHA) PROVIDER INFORMATION 1. Last Name: JEWEL 2. First Name: CHRISTIAN 3. Middle Name: 4. Service Branch: [employer] 5. 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 EMAIL: [email or web address] 8. Facility: [address] [place], [place] [address]CE [facility] 9. Unit: [address] [place], [place] [address] [facility] 10. Address: [address] [place] [address] 11. State: [place] 12. Zip Code: [address] 13. Phone: [phone] 14. Date HCP Review initiated: 1. Member [...] concerns 12. Address requests as reported on restaurant hourly team member questions 7 through 10 (in [place] Section . Behavioral Health): Request medical appointment: PCP follow up knee/back 13. Supplemental services recommended/information provided: No supplemental services required Date MHA Certified: III. PERIODIC HEALTH ASSESSMENT (PHA) PROVIDER INFORMATION 1. Last Name: JEWEL 2. First Name: CHRISTIAN 3. Middle Name: 4. Service Branch: [employer] 5. 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 EMAIL: [email or web address] 8. Facility: [facility] 9. Unit: [address] [place], [place] [address] 10. Address: [address] [place] [address] 11. State: [place] 12. Zip Code: [address] 13. Phone: [phone] 14. Date HCP Review initiated: IV. PERIODIC HEALTH ASSESSMENT PROVIDER RECOMMENDATIONS and REFERRALS 1. Provider concerns with this assessment: No issues or concerns identified V. SUMMARY AND COMMENTS 1. Additional information summarizing findings during the restaurant hourly team member assessment: 2. Provider Comments: . INDIVIDUAL MEDICAL READINESS DISPOSITION DETERMINATION MIKE: Ready DEN: Ready IMM: Ready LAB: Ready ME: Ready IMR Status: Fully Medically Ready VII. SERVICE MEDICAL DEPLOYABILITY EVALUATION INDICATED Based on your review of all documentation, is the restaurant hourly team member medically deployable without limitations? Reference [facility] 6490.07 Yes (restaurant hourly team member DOES NOT currently have a medical condition that limits deployability) Date PHA Completed: END OF OY2605 REPORT -- Extracted from:Title: DHA2 Author: SAVI BRAGG Date: 08/15/24 POST DEPLOYMENT HEALTH ASSESSMENT (PDHA) - [id number] OCT 2023 Last Name: AASHISH First Name: MIYA DODID: [id number] Date of : Sex: Male Service Branch: [employer] Component: Reserves Pay Grade: E6 Date arrived theater: Date departing theater: Summary of provider's identified concerns needing referral: None identified Provider Comments: no further comments. Provider's Name: Capt Shabbir Meadeham Date: 1. Address concerns identified on deployer [...] watchful or easily startled? 16.d. No : Alton numb or detached from others, activities, or your surroundings 16.e. No : Alton guilt or unable to stop blaming yourself [...] like to schedule a visit with a medical staff director, mental health care provider, or a community support counselor? Extracted from:Title: DHA1 Author: GABRIELLE MADERA Date: 12/01/23 PRE-DEPLOYMENT HEALTH ASSESSMENT ([id number] AUG 2015) Last Name: AASHISH First Name: MIYA Navarro [employer] Number: [id number] Date of : Sex: Male Service Branch: [employer] Component: Reserves Pay Grade: E6 Estimated date of upcoming deployment: Country: [place] Number of previous deployments: 1 Medical assessment/disposition: Deployable Medical assessment/disposition comments: Summary of provider's identified concerns needing referral: None identified Provider's Name: GONZALO YU Date: 1. Address concerns identified on deployer [...] watchful or easily startled? No 11. d. Alton numb or detached from others, activities, or [...] legal, disciplinary or financial problem)? : None 06/21/2025 [id number] [facility] Assessment and Plan Extracted from:Title : DHA3 Author: KT HAMILTON Diamond Date: 01/20/25 POST DEPLOYMENT HEALTH RE-ASSESSMENT ([id number] OCT 2023) Last Name: AASHISH First Name: MIYA Peterson ID: [id number] Date of : Sex: Male Service Branch: [employer] Component: Reserves Pay Grade: E7 Date departed theater: Country: [place] Summary of provider's identified concerns needing referral: Recommended referral(s): None. Referral Time Comments: Member in good health and has been adjusting very well. He states that the issues that he reported (back pain, dizziness) are improving very well. kalyani has not had an event of dizziness for the last 4+ months. He is asked to pay very close attention and immediately see a provider if any further incidents occur. Provider's Name: Dg Beck [facility] [[email or web address] Date: 1. Address concerns identified on deployer questions 1 and 2. Self health rating: N/A Deployer's response: N/A Provider's comments: Change in health post-deployment: N/A Deployer's response: N/A Provider's comments: 2. Address wounds, injuries, assaults, etc., occurring during deployment as reported on deployer question 3. Deployer did not indicate concern. 3. Deployment experiences as reported in deployer question 4. Consider in overall assessment; ask follow-up questions as indicated. Danger of being killed: N/A Provider's comments: Encountered bodies or saw people killed or wounded: N/A Provider's comments: In direct combat and discharged weapon: N/A Provider's comments: 4. Address concerns identified on deployer questions 5 through 7. Health care visits since return: N/A Deployer's response: Provider's comments: None Hospitalized since return: N/A Deployer's response: Provider's comments: None Physical limitations/problems: N/A Deployer's response: Provider's comments: None 5. Post-deployment general symptoms/health concerns. List of symptoms reported as Bothered a Lot on Deployer Questions 8a. through 8ee.: None List of symptoms reported as Bothered a Little on Deployer Questions 8a. through 8ee.: Back pain,Pain in the arms, legs, or joints (knees, hips, etc.),Dizziness Physical symptom (PHQ-15) severity score for Deployer Questions 8a. through 8ee.: Minimal a. Deployer does not have evidence of high generalized post-deployment physical symptoms. 6. Deployer marked that they did not have a concern or a difficulty with a major life stressor. 7. Address concerns identified on deployer questions 10 and 11. History of mental health care: N/A Deployer's response: Provider's comments: None Medications: N/A Deployer's response: Provider's comments: None 8. Deployer's AUDIT-C screening score was 4. (nothing required) 9. Deployer did not luis yes on three or more of questions 13a through 13e. 10. Deployer did not luis 'More than half the days' or 'Nearly every day' on question 14a or 14b. 11. Deployer did not indicate a worry or concern about a possible environmental/work exposure. 12. Deployer indicated they were NOT bitten or scratched during this deployment. 13.a. Deployer has not wished they were or wished they could go to sleep and not wake up. 13.b. Deployer has not actually had thoughts of killing themself. 13.f.1. Deployer has not ever done anything, started to do anything, or prepared to do anything to end their life. 13.g. Further risk assessment: 13.h. Deployer does not pose a current risk for harm to self. 14. Deployer states that they have not had thoughts or concerns over the past month that they might hurt or lose control with someone. 19. Address requests as reported on deployer questions 18 through 21: No reported requests. 20. Supplemental services recommended/information provided: No Supplemental Services Required 1. Good : Overall how would you rate your health during the PAST MONTH? 2. About the same as before I deployed : Compared to before your most recent deployment, how would you rate your health in general now? 3. No : Were you wounded, injured, assaulted or otherwise hurt during your deployment? 4. During your deployment: 4. a. No : Did you ever feel like you were in great danger of being killed? 4. b. No : Did you encounter bodies or see people killed or wounded during this deployment? 4. c. No : Did you engage in direct combat where you discharged a weapon? 5. 1 visit : Since you returned from deployment, how many times have you gone to a health care provider for a medical, dental, or mental health problem/concern? 6. No : Since you returned from deployment, have you been hospitalized? 7. Not difficult at all : During the PAST MONTH, how difficult have physical health problems (illness or injury) made it for you to do your work or other regular daily activities? 8. During the PAST MONTH, how much have you been bothered by any of the following problems? (See health care provider item #5 above) 9. a. None : Over the PAST MONTH, what major life stressors have you experienced that are a cause of significant concern or make it difficult for you to do your work, take care of things at home, or get along with other people? 10. No : In the PAST YEAR did you receive care for any mental health condition or concern such as, but not limited to post traumatic stress disorder (PTSD), depression, anxiety disorder, alcohol abuse or substance abuse? 11. None : What prescription or over-the counter medications (including herbals/supplements) for sleep, pain, combat stress, or a mental health problem are you CURRENTLY taking? 12. a. 2-4 times a month : How often do you have a drink containing alcohol? 12. b. 3 or 4 : How many drinks containing alcohol do you have on a typical day when you are drinking? 12. c. Less than monthly : How often do you have six or more drinks on one occasion? 13. Have you ever had any experience that was so frightening, horrible, or upsetting that in the PAST MONTH, you: 13. a. No : Have had nightmares about it or thought about it when you did not want to? 13. b. No : Tried hard not to think about it or went out of your way to avoid situations that remind you of it? 13. c. No : Were constantly on guard, watchful or easily startled? 13. d. No : Alton numb or detached from others, activities, or your surroundings 13. e. No : Alton guilt or unable to stop blaming yourself or others for the event(s) or any problems the event(s) may have caused? 14. Over the LAST 2 WEEKS, how often have you been bothered by the following problems? 14. a. Not at all : Little interest or pleasure in doing things 14. b. Not at all : Feeling down, depressed, or hopeless 15. No : Are you worried about your health because you believe you were exposed to something in the environment while deployed? 16.a. No : During this deployment were you based or stationed at a location where an open burn pit was used? 16.b. No : During this deployment were you exposed to toxic airborne chemicals or other air-borne contaminants? 17. No : Were you bitten or scratched by an animal during your deployment? 18. No : Would you like to schedule an appointment with a health care provider to discuss any health concern(s)? 19. No : Are you interested in receiving information or assistance for a stress, emotional or alcohol concern? 20. No : Are you interested in receiving assistance for a family or relationship concern? 21. No : Would you like to schedule a visit with a medical staff director, mental health care provider, or a community support counselor? Extracted from:Title: Office Clinic Note - Vertigo, R Shoulder, B/L Knee Author: SAVI BURGESS MD Date: 10/18/24 1. V ertigo P heriberto with a history of vertigo episodically now x2 episodes lasting about 1-2 weeks per episode with reproducible symptoms during [place]-Hallpike maneuver in clinic. Patient otherwise asympomatic at t his time. Jo-Ann maneuver not performed due to absence of symptoms at this time. DDx a lso includes vestibular neuritis, labyrinthitis. No coexisting hearing changes or problems. No other neurologic signs or symptoms. - Discussed repositioning maneuver which patient will review and perform if episode returns - Return precautions discussed - Repeat meclizine if helpful and if repeats 2. V ision disorder Patient instructed by optometry that he has symptoms of early cataracts and was recomended o pthalmology. Not fully discussed today. - Referral optho places - Follow-up based on their recommendations Ordered: Referral Request 2.0 - [facility]D 3. R ight shoulder pain Rodriguez louis is a 3 1 Years y ear old M jerrell w ith a history and exam as documented suggestive of s upraspinatus injury l ikely 2/2 to chronic degenerative changes associated with lifestyle (i.e. baseball, lifting weights). Plan: - Relative rest, ice, heat, activity modification - Home exercise program discussed Meds: - NSAIDs and Acetaminophen as needed and as ordered Imaging: -Radiographs: N ot indicated Referrals: -Physical Therapy: o rdered at this time Follow: up: i n 4-6 weeks if symptoms not improving with current plan Ordered: Referral Request 2.0 - DoD 4. P ain of bilateral knee joints P atdonovan is a 5 1 Years y ear old M jerrell w ith a history and exam as documented suggestive of p atellofemoral pain s yndrome . No antecedent f alls nor trauma. Plan: - Relative rest, ice, heat, activity modification - Home exercise program discussed - T shanice [employer] discussed and included in after visit summary - I njections - not indicated Meds: - NSAIDs and Acetaminophen as needed and as ordered Imaging: -Radiographs: N ot indicated Referrals: -Physical Therapy: o rdered at this time Ordered: Referral Request 2.0 - DoD Readiness - No profiles/No DR/ No MR/ no FR Clinic return and ER precautions provided All questions answered/pt acknowledges understanding Please note that this document was dictated using [employer] and I apologize for any aquaculture program director errors I have missed and therefore should be taken within appropriate clinical context. Patient seen and examined on day of encounter with all studies (including labs and radiology) reviewed as above. Note to patient reading this note: the Cares Act makes medical notes available to patient's in the interest of transparency. Be advised this is a medical document. It is intended primarily as fiip-mi-mlcr communication. It is written in medical imaging which may contain abbreviations or verbiage that are unfamiliar. It may appear as blunter or direct. This is because medical documents are intended to carry relevant information, facts is evident, and the clinical opinion of the physician only has formulated at the time of writing. I spent 60 minutes i n direct patient care of this patient, in addition to time spent in chart review and documentation. Savi Burgess Jr., MD [facility], , [facility] edicine Physician [address] [place] [address] [address] [place], [facility] [address], [place] [address] Extracted from:Title: PDMHA Author: KT HAMILTON Date: 09/07/24 POST-DEPLOYMENT MENTAL HEALTH ASSESSMENT Date: Last Name: AASHISH First Name: MIYA Peterson ID Number: [id number] Date of : Sex: Male Service Branch: [employer] Component: Reserves Pay Grade: E6 Date departed theater: Country: [place] Summary of provider's identified concerns needing referral: Recommended referal(s): Referral Time Comments: SECTION II. MENTAL HEALTH ASSESSMENT (MHA) PROVIDER INFORMATION 1. Last Name: JEWEL 2. First Name: CHRISTIAN 3. Middle Name: 4. Service Branch: [employer] 5. 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 EMAIL: [email or web address] 8. Facility: 9 [facility] 9. Unit: [facility] 10. Address: [address] [place] [address] 11 State: [place] 12. Zip Code: [address] 13. Phone: [phone] Date: 1. Deployer marked that they did [...] easily startled? 5. d. [ No ] Alton numb or detached from others, activities, or your surroundings? 5. e. [ No ] Alton guilt or unable to stop blaming yourself [...] like to schedule a visit with a medical staff director or a community support counselor? Extracted from:Title: [facility] 2023 Author: KT HAMILTON Date: 09/06/24 ANNUAL PERIODIC HEALTH ASSESSMENT I. PRETZEL TWISTER INFORMATION AND DEMOGRAPHICS (SMI) 1. Last Name: AASHISH 2. First Name: MIYA 3. Middle Name: ELAINA 4. Assessment Date: 5. : 6. Age: 33 7. Sex: M 8. [employer] ID Number: [id number] 9. Service Branch: [employer] 10. 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 Unit Name: [address] 14. Duty Station/Location: [place] 15. C: [id number] 16. Is this your first Periodic Health Assessment (PHA)?: N 17. Are you enrolled in a secure messaging system with your health care provider?: 18. Current contact information: Preferred Method: Day Time Phone DSN: Day Time Phone: [phone] Night Time Phone: [phone] Email 1: [email or web address] Email 2: Address: [address] [place] [address] City: [place] State: [place] Zip Code: [address] 19. Point of contact who can always reach you: Name: Kierra Beatty Phone 1: [phone] Phone 2: EMAIL: [email or web address] Address: [address] [facility] City: [place] State: [place] Zip Code: [address] II. DEPLOYMENT INFORMATION (DEP) 1. [ 1 [...] easily startled? 6. d. [ No ] Alton numb or detached from others, activities, or your surroundings? 6. e. [ Not answered ] Alton guilt or unable to stop blaming yourself [...] like to schedule a visit with a medical staff director, mental health care provider, or a community [...] 8. [ None ] What prescriptions or gxbt-tdj-jwgwdrt medications are you CURRENTLY taking for health problems on a ROUTINE BASIS? 9. Which of the following products have you taken since your last PHA: Protein Supplements/Creatine: Every other day Performance Enhancers/Pre-Workout Products: Every other day Herbal or Botanical Supplements in pills, gels, and/or tablet form: Every other day Multi-Vitamins: Every other day Otisco-3 Supplements: Once a day 11. Think about [...] had a cholesterol check by a health clinical care manager within the PAST 5 YEARS? 13.a. In [...] discuss any health concerns? XI. SEPARATION AND LONGTERM 1. [ No ] Are you planning to separate or retire within the next year from Active Duty or Hardy Duty (activated for greater than 30 continuous days) OR do you intend to file a claim for disability compensation with the Veterans Benefits Administration? PART B. RECORD REVIEW AND RECOMMENDATIONS I. RECORD REVIEWER INFORMATION 1. Last Name: CARMENZA 2. First Name: SAVI 3. Middle Name: 4. Service Branch: [employer] 5. 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 EMAIL: [email or web address] 8. Facility: [facility] 9. Unit: [facility] 10. Address: [address] [place] [address] 11. State: [place] 12. Zip Code: [address] 13. Phone: [phone] 14. Date Record Review: II. MEDICAL SCREENING 1. [ ] Date of restaurant hourly team member's most recent PHA 2. [ 6 feet 0 inches Date: ] restaurant hourly team member's most recently documented height 3. [ 250 pounds Date: ] restaurant hourly team member's most recently documented weight 4. [ 122/78 Date: ] restaurant hourly team member's most recently documented blood pressure reading 5. [ No ] Does the restaurant hourly team member have a history of abnormal blood pressure since their last PHA? 6. [ Yes ] Does the restaurant hourly team member have a laboratory test of sickle cell trait documented in their permanent medical record? 7. [ No Cholesterol Test Documented ] What is the date of the restaurant hourly team member's most recently documented cholesterol test? 9. [ No Active Medications Documented ] List of restaurant hourly team member's active medications listed in their permanent medical record 10. [ No ] Is there a discrepancy between the active medication record review and the restaurant hourly team member's self-reported list of medications? 11. [ No Outside Care Documented ] List documented significant care the restaurant hourly team member has received since their last PHA from a provider OUTSIDE the [facility] System 12. [ No ] Is there a discrepancy between the restaurant hourly team member's list of OUTSIDE care (from OTH5), and the OUTSIDE care found in the record? 13. [ [id number] LBP [id number] LBP chronic 69Lth17 dizziness/shaving wavier ] List documented significant care the restaurant hourly team member has received since their last PHA from a provider INSIDE the Health System 15. [ Not Answered ] Confirm that vaccine exemptions are listed in the medical record for each vaccine listed IV. FAMILY HISTORY AND LIFESTYLE 1. [ Yes ] Does the GI6225 reflect the restaurant hourly team member's reported family history? . DEPLOYMENT-RELATED HEALTH ASSESSMENTS 1. [ No ] Based on your check of records, does the restaurant hourly team member have any due or overdue deployment health assessments which need to be completed with this PHA? VII. INDIVIDUAL MEDICAL READINESS 1. [ No ] Does the restaurant hourly team member have an Assignment Limitation Code C? 3. [ Classification: 2 ] Most recently documented dental exam 4. [ No: Influenza, [place] ] Is the restaurant hourly team member current on all required immunizations in the immunization tracking system? 5. [ Yes ] Is the restaurant hourly team member current with Service-specific requirements for glasses and gas mask inserts? 6. Does the restaurant hourly team member have the following laboratory tests documented [...] need to be forwarded to the Health [facility] completing PART C: see [facility] Date Record Review Completed: PART C. HEALTH CARE PROVIDER I. MENTAL HEALTH ASSESSMENT (MHA) PROVIDER INFORMATION 1. Last Name: JEWEL 2. First Name: CHRISTIAN 3. Middle Name: 4. Service Branch: [employer] 5. 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 EMAIL: [email or web address] 8. Facility: [facility] 9. Unit: [facility] 10. Address: [address] [place] [address] 11. State: [place] 12. Zip Code: [address] 13. Phone: [phone] 14. Date HCP Review initiated: 1. Member [...] concerns 12. Address requests as reported on restaurant hourly team member questions 7 through 10 (in [place] . Behavioral Health): Request medical appointment: PCP follow up knee/back 13. Supplemental services recommended/information provided: No supplemental services required Date MHA Certified: III. PERIODIC HEALTH ASSESSMENT (PHA) PROVIDER INFORMATION 1. Last Name: JEWEL 2. First Name: CHRISTIAN 3. Middle Name: 4. Service Branch: [employer] 5. 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 EMAIL: [email or web address] 8. Facility: [address] [place], [place] [address]CE [facility] 9. Unit: [address] [place], [place] [address] [facility] 10. Address: [address] [place] [address] 11. State: [facility]. Zip Code: [address] 13. Phone: [phone] 14. Date HCP Review initiated: IV. PERIODIC HEALTH ASSESSMENT PROVIDER RECOMMENDATIONS and REFERRALS 1. Provider concerns with this assessment: No issues or concerns identified V. SUMMARY AND COMMENTS 1. Additional information summarizing findings during the restaurant hourly team member assessment: 2. Provider Comments: . INDIVIDUAL MEDICAL READINESS DISPOSITION DETERMINATION MIKE: Ready DEN: Ready IMM: Ready LAB: Ready ME: Ready IMR Status: Fully Medically Ready VII. SERVICE MEDICAL DEPLOYABILITY EVALUATION INDICATED Based on your review of all documentation, is the restaurant hourly team member medically deployable without limitations? Reference Kacie 6490.07 Yes (restaurant hourly team member DOES NOT currently have a medical condition that limits deployability) Date PHA Completed: END OF [id number] REPORT -- Extracted from:Title: DHA2 Author: SAVI BRAGG Date: 08/15/24 POST DEPLOYMENT HEALTH ASSESSMENT (PDHA) - [id number] OCT 2023 Last Name: AASHISH First Name: MIYA DODID: [id number] Date of : Sex: Male Service Branch: [...] watchful or easily startled? 16.d. No : [place] numb or detached from others, activities, or your surroundings 16.e. No : [place] guilt or unable to stop blaming yourself [...] like to schedule a visit with a medical staff director, mental health care provider, or a community support counselor? Extracted from:Title: DHA1 Author: GABRIELLE MADERA Date: 12/01/23 PRE-DEPLOYMENT HEALTH ASSESSMENT ([id number] AUG 2015) Last Name: AASHISH First Name: MIYA Social Security Number: [id number] Date of : Sex: Male Service Branch: [employer] Pay Grade: E6 Estimated date of upcoming deployment: Country: [place] Number of previous deployments: 1 Medical assessment/disposition: [...] watchful or easily startled? No 11. d. [place] numb or detached from others, activities, or [...] legal, disciplinary or financial problem)? : None 06/21/2025 [id number] [facility] Functional Status Combined list of recent functional and cognitive assessments recorded at [employer] (VA[facility] Functional [place]ram Measurement (FIM) Scale: 1 = Total Assistance (Subject = 0% +), 2 = Maximal Assistance (Subject = 25% +), 3 = Moderate Assistance (Subject = 50% +), 4 = Minimal Assistance (Subject = 75% +), 5 = Supervision, 6 = Modified Ancram (Device), 7 = Complete Ancram (Timely, Safely). Assessment Date/Time Source Assessment Type Assessment Skill Assessment Score Assessment Details No data available for this section
== END 2025-06-21 10:32 | disposition home or self-care (01) ==
LOC: HO.HMCH 09:49
PROVIDERS: PCP Physician Assistant; Visit Provider Physician Assistant
DX: M25.511 Pain in right shoulder (principal); G89.29 Other chronic pain; E66.812 Obesity, class 2; Z68.35 Body mass index [BMI] 35.0-35.9, adult; M25.561 Pain in right knee; M25.562 Pain in left knee; M54.50 Low back pain, unspecified

== ENCOUNTER → 2025-06-21 09:48 | Outpatient (BNVA) | payer OTHER, SELFPAY | PROVIDERS: PCP Physician Assistant; Visit Provider Physician Assistant | DX: E66.812 Obesity, class 2 (principal); M25.511 Pain in right shoulder; M25.561 Pain in right knee; M25.562 Pain in left knee; M54.50 Low back pain, unspecified; R42 Dizziness and giddiness; G89.29 Other chronic pain; Z68.35 Body mass index [BMI] 35.0-35.9, adult | CPT/HCPCS: 96127 ==